=== PATIENT | male | born 1965 | race Caucasian/White ===

== ENCOUNTER 2021-09-30 06:41 | Inpatient (IN) | payer OTHER ==
[2021-09-30] MEDS ORDERED: CEFAZOLIN 2 GM-D5W BAG** 2 GM/50 ML ML IV ONE (07:46)
[2021-09-30] MEDS ORDERED: Lactated Ringers 1,000 ML IV ONE (07:46)
[2021-09-30] MEDS: Lactated Ringers 1,000 ML IV SCH ×2 (07:58→16:34)
[2021-09-30] MEDS ORDERED: OFIRMEV 100 ML IV ONE (08:14)
[2021-09-30] MEDS ORDERED: OFIRMEV 100 ML IV SCH (08:15)
[2021-09-30] MEDS ORDERED: NEURONTIN 300 MG PO SCH (08:15)
[2021-09-30 08:23] LABS: ANION GAP 11.6 MEQ/L (5-15); BLOOD UREA NITROGEN 30 mg/dL (9-20); CHLORIDE 104 mmol/L (98-107); Calcium 9.2 mg/dL (8.4-10.2); Carbon Dioxide 28 mmol/L (22-30); Creatinine 1 0.91 mg/dL (0.66-1.25); EST GLOMERULAR FILTRATION RATE > 60.0 ML/MIN; Glucose 101 mg/dL (74-106); Potassium 4.5 mmol/L (3.5-5.1); SODIUM 140 mmol/L (137-145)
[2021-09-30] MEDS ORDERED: VANCOCIN 1 GM VIAL IV ONE ×2 (08:25→15:56)
[2021-09-30] MEDS ORDERED: CEFAZOLIN 2 GM-D5W BAG** 2 GM/50 ML ML IV SCH (08:30)
[2021-09-30 08:44] LABS: Hematocrit 37.2 % (42-50); Mean Cell Volume 92.1 fl (78-100); Mean Corpuscular Hemoglobin 29.7 pg (26-32); Mean Corpuscular Hgb Concent. 32.3 g/dl (32-36); Mean Platelet Volume 10.2 fl (7.5-11.0); Platelet Count 275 K/mm3 (150-450); Red Blood Count 4.04 M/mm3 (4.1-5.6); Red Cell Distribution Width 14.2 % (11.5-14.0); White Blood Count 5.5 K/mm3 (4.0-10.5)
[2021-09-30] MEDS ORDERED: Versed 2 MG/2 ML Injection IV PRN (08:59)
[2021-09-30 09:25] LABS: INFLUENZA A NEGATIVE (NEGATIVE); INFLUENZA B NEGATIVE (NEGATIVE); RESPIRATORY SYNCTIAL VIRUS NEGATIVE (Negative); SARS-CoV-2 Xpert Express NEGATIVE (NEGATIVE)
[2021-09-30] MEDS ORDERED: Xylocaine-Mpf 2% 5 Ml Vial ONE ×2 (09:28→10:14)
[2021-09-30] MEDS ORDERED: Zofran 4 MG/2 ML VIAL ONE ×2 (09:28→15:19)
[2021-09-30] MEDS ORDERED: DIPRIVAN 200 MG/20 ML IV ONE (09:28)
[2021-09-30] MEDS ORDERED: TORAdol 30 mg Injection ONE ×2 (09:28→15:18)
[2021-09-30] MEDS ORDERED: Decadron 4 MG INJ ONE ×2 (09:28→13:42)
[2021-09-30] MEDS ORDERED: BRIDION 200MG/2ML IV ONE (09:28)
[2021-09-30] MEDS ORDERED: Zemuron 100 MG/10 ML ONE (09:28)
[2021-09-30] MEDS ORDERED: SUBLIMAZE 100 MCG/2 ML ONE ×3 (09:28→15:19)
[2021-09-30] MEDS ORDERED: Ketamine HCl 50 MG/ML ONE (10:16)
[2021-09-30] MEDS ORDERED: Marcaine 0.5%/Epinephrine 10 ML ONE (13:41)
[2021-09-30] MEDS ORDERED: TRANDATE 20 MG/4 ML SYRINGE IV ONE (14:10)
--- NOTE | 2021-09-30 14:12 | XRAY ---
Indication: Removal ankle replacement and replacement of external fixation. Intraoperative fluoroscopy provided for 42 seconds. 17 digital spot images of right ankle submitted for interpretation ultimately demonstrates revision of talotibial arthroplasty. Last images demonstrates external fixation device. Correlate with intraoperative findings/report.
[2021-09-30] MEDS ORDERED: Hydromorphone 1 mg/ml Injection ONE (15:19)
--- NOTE | 2021-09-30 15:26 | PCM.CONS ---
Podiatry HPI - Consult Date of Consultation Date: 09/30/21 Consulting Provider: OSCAR SNOW DPM - HPI History of Present Illness: is a 56 year old male. Medications & Allergies Home Medications: Home Medication List Aspirin 81 gm Chew [Baby Aspirin 81 mg Chew] 81 mg PO DAILY 09/21/21 [History Confirmed 09/30/21] Buprenorphine HCl [Belbuca] 600 mcg PO BID 09/21/21 [History Confirmed 09/30/21] Buspirone HCl 5 mg [Buspar 5 mg] 10 mg PO DAILY 09/21/21 [History Confirmed 09/30/21] Calcium Carbonate/Vitamin D3 [Caltrate 600 + D Soft Chew Tab] 1 each PO DAILY 09/21/21 [History Confirmed 09/30/21] Calcium Carbonate/Vitamin D3 [Sv Calcium 600-Vit D3 500 Sfgl] 1 each PO DAILY 09/21/21 [History Confirmed 09/30/21] Celecoxib 100 mg [celeBREX 100 MG] 200 mg PO DAILY 09/21/21 [History Confirmed 09/30/21] Cholecalciferol (Vitamin D3) [Vitamin D] 5,000 unit PO DAILY 09/21/21 [History Confirmed 09/30/21] Finasteride 5 mg [Proscar 5 MG] 5 mg PO DAILY 09/21/21 [History Confirmed 09/30/21] Hydrocodone/Acetaminophen [Hydrocodone-Acetamin 7.5-325] 1 each PO TID 09/21/21 [History Confirmed 09/30/21] Lidocaine HCl 2% Jelly [Xylocaine 2% JELLY] 5 ml MM DAILY PRN PRN 09/21/21 [History Confirmed 09/30/21] Lisinopril 10 mg [Zestril 10 MG] 10 mg PO DAILY 09/21/21 [History Confirmed 09/30/21] Metformin HCl 500 mg [Glucophage 500 MG] 500 mg PO DAILY 09/21/21 [History Confirmed 09/30/21] Oxcarbazepine 300 mg [Trileptal 300 MG Tablet] 300 mg PO BID 09/21/21 [History Confirmed 09/30/21] RX: Pregabalin 200 mg PO BID 09/21/21 [History Confirmed 09/30/21] Topiramate [Trokendi Xr] 25 mg PO DAILY 09/21/21 [History Confirmed 09/30/21] Tumeric/Ging/[place]/Oreg/Capryl [Candicidal Capsule] 1 each PO DAILY 09/21/21 [History Confirmed 09/30/21] Vit B/Min/Saw [place]ge[place] [Urinozinc Prost Complx [facility]] 1 each PO BID 09/21/21 [History Confirmed 09/30/21] Atorvastatin Calcium [Lipitor] 10 mg PO DAILY 09/30/21 [History Confirmed 09/30/21] Furosemide [Lasix] 20 mg PO DAILY 09/30/21 [History Confirmed 09/30/21] Oxycodone HCl/Acetaminophen [Oxycodone-Acetaminophn 7.5-325] 1 each PO QID PRN 09/30/21 [History Confirmed 09/30/21] Pnv 112/Iron/Folic/Om3/Dha/Epa [Vitafol Gummies] 1 each PO DAILY 09/30/21 [History Confirmed 09/30/21] Allergies/Adverse Reactions: Allergies Allergy/AdvReac Type Severity Reaction Status Date / Time No Known Drug Allergies Allergy Unverified 09/21/21 14:40 - Past Medical History Past Medical History: Yes Neurological History: Peripheral Neuropathy Cardiac History: Hypertension Endocrine Medical History: Diabetes Type II Musculoskelatal History: Arthritis Pyscho-Social History: Anxiety Male Reproductive Disorders: Prostate Problems - Past Surgical History Musculskeletal Surgical Hx: Joint Replacement Other Surgical History: total ankle Jul 2018, total knee December 2020. - Social History Smoking Status: Never smoker Exposure to second hand smoke: No Alcohol: Rarely Drug Use: none Physical Exam - Narrative Narrative Physical Exam: Podiatry Physical Exam Results - Labs Lab/Micro Results: Lab Results-Last 24 Hours 09/30/21 09/30/21 09/30/21 Range/Units 07:55 08:00 08:00 WBC 5.5 (4.0-10.5) K/mm3 RBC 4.04 L (4.1-5.6) M/mm3 Hgb 12.0 L (12.5-18.0) gm/dl Hct 37.2 L (42-50) % MCV 92.1 (78-100) fl MCH 29.7 (26-32) pg MCHC 32.3 (32-36) g/dl RDW 14.2 H (11.5-14.0) % Plt Count 275 (150-450) K/mm3 MPV 10.2 (7.5-11.0) fl Sodium 140 (137-145) mmol/L Potassium 4.5 (3.5-5.1) mmol/L Chloride 104 (98-107) mmol/L Carbon Dioxide 28 (22-30) mmol/L Anion Gap 11.6 (5-15) MEQ/L BUN 30 H (9-20) mg/dL Creatinine 0.91 (0.66-1.25) mg/dL Estimated GFR > 60.0 ML/MIN Glucose 101 (74-106) mg/dL POC Glucometer 107 H (74 to 106) mg/dL Calcium 9.2 (8.4-10.2) mg/dL Influenza Type A Ag (NEGATIVE) Influenza Type B Ag (NEGATIVE) RSV (PCR) (Negative) SARS-CoV-2 (PCR) (NEGATIVE) 09/30/21 Range/Units 08:45 WBC (4.0-10.5) K/mm3 RBC (4.1-5.6) M/mm3 Hgb (12.5-18.0) gm/dl Hct (42-50) % MCV (78-100) fl MCH (26-32) pg MCHC (32-36) g/dl RDW (11.5-14.0) % Plt Count (150-450) K/mm3 MPV (7.5-11.0) fl Sodium (137-145) mmol/L Potassium (3.5-5.1) mmol/L Chloride (98-107) mmol/L Carbon Dioxide (22-30) mmol/L Anion Gap (5-15) MEQ/L BUN (9-20) mg/dL Creatinine (0.66-1.25) mg/dL Estimated GFR ML/MIN Glucose (74-106) mg/dL POC Glucometer (74 to 106) mg/dL Calcium (8.4-10.2) mg/dL Influenza Type A Ag NEGATIVE (NEGATIVE) Influenza Type B Ag NEGATIVE (NEGATIVE) RSV (PCR) NEGATIVE (Negative) SARS-CoV-2 (PCR) NEGATIVE (NEGATIVE) - Radiology Impressions Radiology Exams & Impressions: Radiology Procedures Category Date Time Status FLUOROSCOPY UP TO 1 HR Routine Exams 09/30/21 06:47 Taken FOOT (2 VIEWS) Routine Exams 09/30/21 06:45 Completed Assessment/Plan (1) Varus deformity, not elsewhere classified, right ankle Current Visit: Yes Status: Acute Code(s): M21.171 - VARUS DEFORMITY, NOT ELSEWHERE CLASSIFIED, RIGHT ANKLE (2) Ankle varus, acquired Current Visit: Yes Status: Acute Assessment & Plan: Patient is postop day 0 status post removal of failed total ankle arthroplasty, bone debridement to tibia fibula talus and calcaneus and application of antibiotic bone cement and application of a multilevel multiplanar Ilizarov external fixator. Admit for pain control Consult medicine for medical management Pain control as prescribed DVT prophylaxis as prescribed Nonweightbearing to right lower extremity. Patient permitted touchdown with frame to ground Elevate extremity Antiembolism stocking to contralateral extremity with sequential compression device Incentive spirometry Keep dressing clean dry and intact. If there is strikethrough on dressing reinforce with ABD and Curlex with minimal appropriate compression Monitor intakes and output every shift Will follow closely Code(s): M21.549 - ACQUIRED CLUBFOOT, UNSPECIFIED FOOT (3) Pain in right ankle Current Visit: Yes Status: Acute Code(s): M25.571 - PAIN IN RIGHT ANKLE AND JOINTS OF RIGHT FOOT (4) Osteomyelitis due to type 2 diabetes mellitus Current Visit: Yes Status: Acute Code(s): E11.69 - TYPE 2 DIABETES MELLITUS WITH OTHER SPECIFIED COMPLICATION; M86.9 - OSTEOMYELITIS, UNSPECIFIED (5) Diabetic peripheral neuropathy associated with type 2 diabetes mellitus Current Visit: Yes Status: Acute Code(s): E11.42 - TYPE 2 DIABETES MELLITUS WITH DIABETIC POLYNEUROPATHY (6) Controlled diabetes mellitus Current Visit: Yes Status: Acute Code(s): E11.9 - TYPE 2 DIABETES MELLITUS WITHOUT COMPLICATIONS
--- NOTE | 2021-09-30 15:41 | XRAY ---
42 seconds fluoroscopy time in surgery for hardware removal and placement of external fixation of the right ankle.
[2021-09-30] MEDS ORDERED: DILAUDID 1 MG/1ML PCA IV PRN (15:45)
[2021-09-30] MEDS ORDERED: Narcan 0.4 MG/ML IV PRN (15:45)
[2021-09-30] MEDS ORDERED: Hydromorphone 1 mg/ml Injection IV PRN (15:50)
[2021-09-30] MEDS ORDERED: MORPHINE SULFATE 10 MG/ML ONE (15:56)
[2021-09-30] MEDS ORDERED: VANCOMYCIN 1 GRAM/200 ML BAG 1 GM/200 ML PIGGYBACK IV SCH (16:00)
[2021-09-30] MEDS: VANCOMYCIN 1 GRAM/200 ML BAG 1 GM/200 ML PIGGYBACK IV SCH (16:57)
--- NOTE | 2021-09-30 20:06 | PCM.HP ---
History of Present Illness - Chief Complaint Chief Complaint: Surgery to R ankle History of Present Illness: is a 56 year old male patient of [employer] Dr Newton admitted for bone debridement /failed Right total ankle arthroplatsy (2019),ankle varus right. PMHx includes HTN,DM2(prediabetes?),Peripheral neuropathy,BPH,Anxiety,arthritis S/P left total knee replacement. Patient states he worked [employer] with multiple injuries over the years. Current PCP is Jenny Gallagher NP and Pain Management Dr Moreno. - Review of Systems Constitutional: No Symptoms Eyes: No Symptoms Ears, Nose, & Throat: No Symptoms Respiratory: No Symptoms Cardiac: No Symptoms Abdominal/Gastrointestinal: No Symptoms Genitourinary Symptoms: Frequency, Urgency, Other (BPH on RX) Musculoskeletal: Arthralgias, Back Pain Neurological: Other (peripheral neuropathy) Psychological: Anxiety, Other (Takes Trileptal) Endocrine: No Symptoms Hematologic/Lymphatic: No Symptoms Medications & Allergies Home Medications: Home Medication List Aspirin 81 gm Chew [Baby Aspirin 81 mg Chew] 81 mg PO DAILY 09/21/21 [History Confirmed 09/30/21] Buprenorphine HCl [Belbuca] 450 mcg PO BID 09/21/21 [History Confirmed 09/30/21] Buspirone HCl 5 mg [Buspar 5 mg] 10 mg PO HS 09/21/21 [History Confirmed 09/30/21] Calcium Carbonate/Vitamin D3 [Caltrate 600 + D Soft Chew Tab] 1 each PO DAILY 09/21/21 [History Confirmed 09/30/21] Calcium Carbonate/Vitamin D3 [Sv Calcium 600-Vit D3 500 Sfgl] 1 each PO DAILY 09/21/21 [History Confirmed 09/30/21] Celecoxib 100 mg [celeBREX 100 MG] 200 mg PO DAILY 09/21/21 [History Confirmed 09/30/21] Cholecalciferol (Vitamin D3) [Vitamin D] 5,000 unit PO DAILY 09/21/21 [History Confirmed 09/30/21] Finasteride 5 mg [Proscar 5 MG] 5 mg PO DAILY 09/21/21 [History Confirmed 09/30/21] Hydrocodone/Acetaminophen [Hydrocodone-Acetamin 7.5-325] 1 each PO TID 09/21/21 [History Confirmed 09/30/21] Lidocaine HCl 2% Jelly [Xylocaine 2% JELLY] 5 ml MM DAILY PRN PRN 09/21/21 [History Confirmed 09/30/21] Lisinopril 10 mg [Zestril 10 MG] 10 mg PO DAILY 09/21/21 [History Confirmed 09/30/21] Metformin HCl 500 mg [Glucophage 500 MG] 500 mg PO DAILY 09/21/21 [History Confirmed 09/30/21] Oxcarbazepine 300 mg [Trileptal 300 MG Tablet] 300 mg PO BID 09/21/21 [History Confirmed 09/30/21] Pregabalin 200 mg PO BID 09/21/21 [History Confirmed 09/30/21] Tumeric/Ging/[place]/Oreg/Capryl [Candicidal Capsule] 1 each PO DAILY 09/21/21 [History Confirmed 09/30/21] Vit B/Min/Saw [place]/Pyge[place] [Urinozinc Prost Complx [facility] Cp] 1 each PO BID 09/21/21 [History Confirmed 09/30/21] Alfuzosin HCl [Alfuzosin HCl ER] 10 mg PO DAILY 09/30/21 [History Confirmed 09/30/21] Atorvastatin Calcium [Lipitor] 20 mg PO DAILY 09/30/21 [History Confirmed 09/30/21] Furosemide [Lasix] 20 mg PO DAILY 09/30/21 [History Confirmed 09/30/21] Oxycodone HCl/Acetaminophen [Oxycodone-Acetaminophn 7.5-325] 1 each PO QID PRN 09/30/21 [History Confirmed 09/30/21] Pnv 112/Iron/Folic/Om3/Dha/Epa [Vitafol Gummies] 1 each PO DAILY 09/30/21 [History Confirmed 09/30/21] Allergies/Adverse Reactions: Allergies Allergy/AdvReac Type Severity Reaction Status Date / Time No Known Drug Allergies Allergy Unverified 09/21/21 14:40 - Past Medical History Past Medical History: Yes Neurological History: Peripheral Neuropathy Cardiac History: Hypertension Endocrine Medical History: Diabetes Type II Musculoskelatal History: Arthritis Pyscho-Social History: Anxiety Male Reproductive Disorders: Prostate Problems - Past Surgical History Past Surgical History: Yes Neuro Surgical History: No Pertinent History Cardiac History: No Pertinent History Respiratory Surgery: No Pertinent History GI Surgical History: No Pertinent History Genitourinary Surgical Hx: No Pertinent History Musculskeletal Surgical Hx: Joint Replacement Male Surgical History: No Pertinent History Other Surgical History: total ankle Jul 2018, total knee December 2020. - Social History Smoking Status: Never smoker Exposure to second hand smoke: No Alcohol: Rarely Drug Use: none - Physical Exam Vital Signs: Vital Signs - 24 hr Temp Pulse Resp BP Pulse Ox 09/30/21 18:50 98.6 F 97 H 20 117/56 94 L 09/30/21 17:50 97.8 F 77 16 140/73 95 09/30/21 17:20 97.5 F 73 16 143/73 98 09/30/21 17:08 97.7 F 77 18 132/72 90 L 09/30/21 16:59 90 L 09/30/21 16:50 97.5 F 75 18 126/69 93 L 09/30/21 16:35 97.7 F 77 18 132/72 90 L 09/30/21 08:44 97.7 F 67 18 141/87 93 L 09/30/21 08:32 97.7 F 67 18 141/87 93 L General Appearance: no apparent distress (post op day 0 with block still in affect) Neurologic Exam: alert, oriented x 3, cooperative Eye Exam: eyes nml inspection Neck Exam: normal inspection Respiratory Exam: normal breath sounds Cardiovascular Exam: regular rate/rhythm Gastrointestinal/Abdomen Exam: soft (nontender) Rectal Exam: not done Back Exam: normal inspection Extremity Exam: other (RLE - external fixator is in place post op bandages dry,toes warm,can move all toes,left knee scar healed S/P left total knee replacement) Wound Assessment: Skin/Wound Assessment Wound/Incision Assessment Start: 09/30/21 17:37 Text: Status: Active Freq: Q6H Protocol: Document 09/30/21 17:37 BA (Rec: 09/30/21 17:50 BA [id number]) Wound/Incision Assessment Right Ankle Wound Assessment Admission Wound Type Incision Wound Stage Non Pressure Wound Dressing Status Dry & Intact Drainage Amount None Drainage Odor None/Absent Surrounding Tissue [place] Comment surgical dressing/bety wrap in place. Moves toes on command; pink warm to touch. Results - Labs Lab/Micro Results: Lab Results-Last 24 Hours 09/30/21 09/30/21 09/30/21 Range/Units 07:55 08:00 08:00 WBC 5.5 (4.0-10.5) K/mm3 RBC 4.04 L (4.1-5.6) M/mm3 Hgb 12.0 L (12.5-18.0) gm/dl Hct 37.2 L (42-50) % MCV 92.1 (78-100) fl MCH 29.7 (26-32) pg MCHC 32.3 (32-36) g/dl RDW 14.2 H (11.5-14.0) % Plt Count 275 (150-450) K/mm3 MPV 10.2 (7.5-11.0) fl Sodium 140 (137-145) mmol/L Potassium 4.5 (3.5-5.1) mmol/L Chloride 104 (98-107) mmol/L Carbon Dioxide 28 (22-30) mmol/L Anion Gap 11.6 (5-15) MEQ/L BUN 30 H (9-20) mg/dL Creatinine 0.91 (0.66-1.25) mg/dL Estimated GFR > 60.0 ML/MIN Glucose 101 (74-106) mg/dL POC Glucometer 107 H (74 to 106) mg/dL Calcium 9.2 (8.4-10.2) mg/dL Influenza Type A Ag (NEGATIVE) Influenza Type B Ag (NEGATIVE) RSV (PCR) (Negative) SARS-CoV-2 (PCR) (NEGATIVE) 09/30/21 Range/Units 08:45 WBC (4.0-10.5) K/mm3 RBC (4.1-5.6) M/mm3 Hgb (12.5-18.0) gm/dl Hct (42-50) % MCV (78-100) fl MCH (26-32) pg MCHC (32-36) g/dl RDW (11.5-14.0) % Plt Count (150-450) K/mm3 MPV (7.5-11.0) fl Sodium (137-145) mmol/L Potassium (3.5-5.1) mmol/L Chloride (98-107) mmol/L Carbon Dioxide (22-30) mmol/L Anion Gap (5-15) MEQ/L BUN (9-20) mg/dL Creatinine (0.66-1.25) mg/dL Estimated GFR ML/MIN Glucose (74-106) mg/dL POC Glucometer (74 to 106) mg/dL Calcium (8.4-10.2) mg/dL Influenza Type A Ag NEGATIVE (NEGATIVE) Influenza Type B Ag NEGATIVE (NEGATIVE) RSV (PCR) NEGATIVE (Negative) SARS-CoV-2 (PCR) NEGATIVE (NEGATIVE) - Radiology Impressions Radiology Exams & Impressions: Radiology Procedures Category Date Time Status FLUOROSCOPY UP TO 1 HR Routine Exams 09/30/21 06:47 Completed FOOT (2 VIEWS) Routine Exams 09/30/21 06:45 Completed Assessment/Plan (1) Varus deformity, not elsewhere classified, right ankle Current Visit: Yes Status: Chronic Code(s): M21.171 - VARUS DEFORMITY, NOT ELSEWHERE CLASSIFIED, RIGHT ANKLE (2) Controlled diabetes mellitus Current Visit: Yes Status: Chronic Qualifiers: Diabetes mellitus type: type 2 Diabetes mellitus chcf insulin use: without customer support advisor use Code(s): E11.9 - TYPE 2 DIABETES MELLITUS WITHOUT COMPLICATIONS (3) 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 Assessment & Plan: post op day 0 Right ankle corrective surgery/debridement Code(s): T84.019A - BROKEN INTERNAL JOINT PROSTHESIS, UNSP SITE, INIT ENCNTR (4) HTN (hypertension) Current Visit: Yes Status: Acute Code(s): I10 - ESSENTIAL (PRIMARY) HYPERTENSION
[2021-09-30] MEDS: NORCO 5/325 MG PO PRN (21:10)
[2021-09-30] MEDS ORDERED: LYRICA 100MG PO SCH (22:00)
[2021-09-30] MEDS ORDERED: BUSPAR 5 MG PO SCH (22:00)
[2021-09-30] MEDS: Zestril 10 MG PO SCH (22:01)
[2021-10-01] MEDS: VANCOMYCIN 1 GRAM/200 ML BAG 1 GM/200 ML PIGGYBACK IV SCH ×3 (02:15→18:05)
[2021-10-01] MEDS: NORCO 5/325 MG PO PRN ×5 (04:21→22:05)
[2021-10-01] MEDS ORDERED: Xylocaine 2% JELLY MM PRN (07:44)
[2021-10-01] MEDS ORDERED: PHARMACY DOSING REQUIRED: DILAUDID PCA IV PRN (08:02)
--- NOTE | 2021-10-01 08:03 | PCM.NOTE ---
Date and Time: 10/01/21 0756 Subjective Assessment: Patient seen at bedside this a.m postop day #1 status post removal of total ankle arthroplasty, multiple bone debridement placement of antibiotic spacer and application of a multiplanar static Ilizarov external fixator. Patient is postop day #1 date of procedure 09/30/2021. Patient with some complaints of burning pain at the inner aspect of the ankle this morning. Patient is able to wiggle toes. Sensation intact to all dermatomes to the right lower extremity. Patient denies any constitutional symptoms of infection. He has many questions. Nursing staff (Domingo) at bedside during conversation. No other pedal complaints at this time Physical Exam - Vascular Varicosities: Negtive Edema: None Skin: Supple, not atrophic Skin Temperature: Warm to touch - Muscular Digital Deformity: hammer toe Joint ROM: Limited ROM Equinus: Gastorocnemius equinus - Narrative Narrative Physical Exam: Podiatry Physical Exam Dressings clean dry and intact with no strikethrough on primary or secondary dressing. External fixator with no loss of position. Foot orthogonal to the longitudinal access of the tibia with no residual deformity. Patient is able to wiggle toes. Sensation intact to all dermatomes to the right lower extremity. OBJECTIVE DATA Vital Signs: Vital Signs - 24 hr Temp Pulse Resp BP Pulse Ox 10/01/21 07:45 63 20 97 10/01/21 04:26 98.4 F 69 18 101/71 96 09/30/21 23:37 97.9 F 72 20 112/57 94 L 09/30/21 22:44 95 09/30/21 18:50 98.6 F 97 H 20 117/56 94 L 09/30/21 17:50 97.8 F 77 16 140/73 95 09/30/21 17:20 97.5 F 73 16 143/73 98 09/30/21 17:08 97.7 F 77 18 132/72 90 L 09/30/21 16:59 90 L 09/30/21 16:50 97.5 F 75 18 126/69 93 L 09/30/21 16:35 97.7 F 77 18 132/72 90 L 09/30/21 08:44 97.7 F 67 18 141/87 93 L 09/30/21 08:32 97.7 F 67 18 141/87 93 L Pain Assessment - Last Documented Pain Intensity [right ankle] 6 Pain Intensity 6 Pain Scale Used 0-10 Pain Scale Intake and Output: Intake & Output 09/28/21 09/29/21 09/30/21 10/01/21 11:59 11:59 11:59 11:59 Intake Total 4303 Output Total 3300 Balance 1003 Weight 130.4 kg 140 kg Lab Results: Lab Results-Last 24 Hours 09/30/21 09/30/21 09/30/21 Range/Units 07:55 08:00 08:00 WBC 5.5 (4.0-10.5) K/mm3 RBC 4.04 L (4.1-5.6) M/mm3 Hgb 12.0 L (12.5-18.0) gm/dl Hct 37.2 L (42-50) % MCV 92.1 (78-100) fl MCH 29.7 (26-32) pg MCHC 32.3 (32-36) g/dl RDW 14.2 H (11.5-14.0) % Plt Count 275 (150-450) K/mm3 MPV 10.2 (7.5-11.0) fl Sodium 140 (137-145) mmol/L Potassium 4.5 (3.5-5.1) mmol/L Chloride 104 (98-107) mmol/L Carbon Dioxide 28 (22-30) mmol/L Anion Gap 11.6 (5-15) MEQ/L BUN 30 H (9-20) mg/dL Creatinine 0.91 (0.66-1.25) mg/dL Estimated GFR > 60.0 ML/MIN Glucose 101 (74-106) mg/dL POC Glucometer 107 H (74 to 106) mg/dL Calcium 9.2 (8.4-10.2) mg/dL Influenza Type A Ag (NEGATIVE) Influenza Type B Ag (NEGATIVE) RSV (PCR) (Negative) SARS-CoV-2 (PCR) (NEGATIVE) 09/30/21 09/30/21 10/01/21 Range/Units 08:45 20:57 07:30 WBC (4.0-10.5) K/mm3 RBC (4.1-5.6) M/mm3 Hgb (12.5-18.0) gm/dl Hct (42-50) % MCV (78-100) fl MCH (26-32) pg MCHC (32-36) g/dl RDW (11.5-14.0) % Plt Count (150-450) K/mm3 MPV (7.5-11.0) fl Sodium (137-145) mmol/L Potassium (3.5-5.1) mmol/L Chloride (98-107) mmol/L Carbon Dioxide (22-30) mmol/L Anion Gap (5-15) MEQ/L BUN (9-20) mg/dL Creatinine (0.66-1.25) mg/dL Estimated GFR ML/MIN Glucose (74-106) mg/dL POC Glucometer 148 H 112 H (74 to 106) mg/dL Calcium (8.4-10.2) mg/dL Influenza Type A Ag NEGATIVE (NEGATIVE) Influenza Type B Ag NEGATIVE (NEGATIVE) RSV (PCR) NEGATIVE (Negative) SARS-CoV-2 (PCR) NEGATIVE (NEGATIVE) Radiology Exams: Radiology Procedures Category Date Time Status FLUOROSCOPY UP TO 1 HR Routine Exams 09/30/21 06:47 Completed FOOT (2 VIEWS) Routine Exams 09/30/21 06:45 Completed Assessment/Plan (1) Varus deformity, not elsewhere classified, right ankle Current Visit: Yes Status: Acute Code(s): M21.171 - VARUS DEFORMITY, NOT ELSEWHERE CLASSIFIED, RIGHT ANKLE (2) Ankle varus, acquired Current Visit: Yes Status: Acute Assessment & Plan: Patient is postop day 1 status post removal of failed total ankle arthroplasty, bone debridement to tibia fibula talus and calcaneus and application of ant ibiotic bone cement and application of a multilevel multiplanar Ilizarov external fixator. Patient progressing without significant complication at this time. Patient has continued complaints of pain to the inner aspect of the left ankle. Patient was postoperatively given a popliteal block and is on several narcotics at this time. Concern for medication prescribed by pain management physician Cherise that may be counteracting some of the narcotics effect. At this time increase pain control in preparation for block wearing off. We will plan to wean off of intravenous narcotics once pain is under control Will increase Lyrica to 200 mg 3 times daily Continue DVT prophylaxis Nonweightbearing to the right lower extremity. Patient permitted touchdown with frame to the ground. Nurse assessment for transfers to chair side. PT OT will reassess from a formal perspective on Sunday. Once assessed bedside commode with assistance Elevate extremity Antiembolism stocking to the contralateral extremity with sequential compression device Incentive spirometry Will plan for CT scan without contrast to the right ankle on Sunday Discussion with case management for plan for discharge. Patient requesting hospital bed for home. Keep dressings clean dry and intact. If there is strikethrough on the dressing reinforce with ABD and Kerlix with minimal compression. Monitor intake and output every shift We will follow closely Code(s): M21.549 - ACQUIRED CLUBFOOT, UNSPECIFIED FOOT (3) Pain in right ankle Current Visit: Yes Status: Acute Code(s): M25.571 - PAIN IN RIGHT ANKLE AND JOINTS OF RIGHT FOOT (4) Osteomyelitis due to type 2 diabetes mellitus Current Visit: Yes Status: Acute Code(s): E11.69 - TYPE 2 DIABETES MELLITUS WITH OTHER SPECIFIED COMPLICATION; M86.9 - OSTEOMYELITIS, UNSPECIFIED (5) Diabetic peripheral neuropathy associated with type 2 diabetes mellitus Current Visit: Yes Status: Acute Code(s): E11.42 - TYPE 2 DIABETES MELLITUS WITH DIABETIC POLYNEUROPATHY (6) Controlled diabetes mellitus Current Visit: Yes Status: Acute Code(s): E11.9 - TYPE 2 DIABETES MELLITUS WITHOUT COMPLICATIONS
[2021-10-01] MEDS ORDERED: MEDICATION INTERVENTION PO SCH (08:30)
[2021-10-01] MEDS: Glucophage 500 MG PO SCH (08:44)
[2021-10-01] MEDS: VITAMIN D PO SCH (09:01)
[2021-10-01] MEDS: Calcium 500MG W/Vit D Tablet PO SCH (09:01)
[2021-10-01] MEDS: LASIX 20 MG PO SCH (09:07)
[2021-10-01] MEDS: Zestril 10 MG PO SCH (09:07)
[2021-10-01] MEDS: LYRICA 100MG PO SCH ×3 (09:07→22:05)
[2021-10-01] MEDS: ZOCOR 20MG PO SCH (09:07)
[2021-10-01] MEDS: Trileptal 300 MG Tablet PO SCH ×3 (09:08→22:05)
[2021-10-01] MEDS: Proscar 5 MG PO SCH (09:09)
[2021-10-01] MEDS: ENOXAPARIN SODIUM SQ SCH (09:10)
[2021-10-01] MEDS ORDERED: MULTIVITAMIN PO SCH (10:00)
[2021-10-01] MEDS ORDERED: NON-FORMULARY ITEM (Alfuzosin Hcl [Alfuzosin Hcl Er] 10 MG Tab.Er.24h) PO SCH (10:00)
[2021-10-01] MEDS ORDERED: OMEGA 3 FATTY ACIDS PO SCH (10:00)
[2021-10-01] MEDS ORDERED: FOLIC ACID PO SCH (10:00)
[2021-10-01] MEDS ORDERED: NON-FORMULARY ITEM (Atorvastatin Calcium 10 MG Tablet) PO SCH (10:00)
[2021-10-01] MEDS ORDERED: DOCOSAHEXAENOIC ACID PO SCH (10:00)
[2021-10-01] MEDS ORDERED: VITAMIN D3 PO SCH (10:00)
[2021-10-01] MEDS ORDERED: IRON PO SCH (10:00)
[2021-10-01] MEDS ORDERED: CALCIUM CARBONATE PO SCH (10:00)
[2021-10-01] MEDS ORDERED: NON-FORMULARY ITEM (Cholecalciferol (Vitamin D3) [Vitamin D3] 1,250 MCG Capsule) PO SCH (10:00)
[2021-10-01] MEDS ORDERED: [UNRECOGNIZED DRUG - OTHER] PO SCH (10:00)
[2021-10-01] MEDS ORDERED: [UNRECOGNIZED DRUG - OTHER] PO SCH (10:00)
[2021-10-01] MEDS ORDERED: [UNRECOGNIZED DRUG - OTHER] PO SCH (10:00)
--- NOTE | 2021-10-01 13:21 | PCM.NOTE ---
Date and Time: 10/01/21 1317 Subjective Assessment: POD#1 Dr Newton note reviewed. Patient states doing well other than expected discomfort from surgery. Has a good appetite and sugars are wnl. Denies cough or chest pain or abd pain. Has chronic BPH frequency. Objective Exam General Appearance: no apparent distress Neurologic Exam: alert, oriented x 3, cooperative Skin Exam: normal color, warm Wound Assessment: Skin/Wound Assessment Wound/Incision Assessment Start: 09/30/21 17:37 Text: Status: Active Freq: Q6H Protocol: Document 10/01/21 08:00 RDNE (Rec: 10/01/21 09:27 [email or web address] [id number]) Wound/Incision Assessment Right Ankle Wound Assessment Shift Assessment Wound Type Incision Wound Stage Non Pressure Wound Dressing Status Dry & Intact Drainage Amount None Drainage Odor None/Absent Surrounding Tissue [place] Comment surgical dressing/bety wrap in place. Moves toes on command; pink warm to touch. Neck Exam: normal inspection Respiratory Exam: normal breath sounds Cardiovascular Exam: regular rate/rhythm Gastrointestinal/Abdomen Exam: soft (nontender) Extremity Exam: other (right ankle ext fixator in place-see Podiatry note.) OBJECTIVE DATA Vital Signs: Vital Signs - 24 hr Temp Pulse Resp BP Pulse Ox 10/01/21 12:43 96.9 F 66 18 103/55 96 10/01/21 09:16 77 102/55 10/01/21 09:01 95 10/01/21 07:45 63 20 97 10/01/21 04:26 98.4 F 69 18 101/71 96 09/30/21 23:37 97.9 F 72 20 112/57 94 L 09/30/21 22:44 95 09/30/21 18:50 98.6 F 97 H 20 117/56 94 L 09/30/21 17:50 97.8 F 77 16 140/73 95 09/30/21 17:20 97.5 F 73 16 143/73 98 09/30/21 17:08 97.7 F 77 18 132/72 90 L 09/30/21 16:59 90 L 09/30/21 16:50 97.5 F 75 18 126/69 93 L 09/30/21 16:35 97.7 F 77 18 132/72 90 L Pain Assessment - Last Documented Pain Intensity [right ankle] 6 Pain Intensity 8 Pain Scale Used 0-10 Pain Scale Intake and Output: Intake & Output 09/29/21 09/30/21 10/01/21 10/02/21 11:59 11:59 11:59 11:59 Intake Total 5593 Output Total 3850 Balance 1743 Weight 130.4 kg 140 kg Lab Results: Lab Results-Last 24 Hours 09/30/21 10/01/21 10/01/21 Range/Units 20:57 07:30 11:24 POC Glucometer 148 H 112 H 111 H (74 to 106) mg/dL Radiology Exams: Radiology Procedures Category Date Time Status FLUOROSCOPY UP TO 1 HR Routine Exams 09/30/21 06:47 Completed FOOT (2 VIEWS) Routine Exams 09/30/21 06:45 Completed Assessment/Plan (1) Pain in right ankle Current Visit: Yes Status: Chronic Assessment & Plan: POD#1 corrective R ankle surgery S/P failed right ankle arthropasty Code(s): M25.571 - PAIN IN RIGHT ANKLE AND JOINTS OF RIGHT FOOT (2) 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 Assessment & Plan: right ankle arthoplasty failed Code(s): T84.019A - BROKEN INTERNAL JOINT PROSTHESIS, UNSP SITE, INIT ENCNTR (3) HTN (hypertension) Current Visit: Yes Status: Chronic Assessment & Plan: controlled Code(s): I10 - ESSENTIAL (PRIMARY) HYPERTENSION (4) Diabetic peripheral neuropathy associated with type 2 diabetes mellitus Current Visit: Yes Status: Acute Code(s): E11.42 - TYPE 2 DIABETES MELLITUS WITH DIABETIC POLYNEUROPATHY (5) Controlled diabetes mellitus Current Visit: Yes Status: Chronic Qualifiers: Diabetes mellitus type: type 2 Diabetes mellitus detention insulin use: without intermediate designer use Assessment & Plan: monitor Code(s): E11.9 - TYPE 2 DIABETES MELLITUS WITHOUT COMPLICATIONS
[2021-10-01] MEDS: Lactated Ringers 1,000 ML IV SCH (13:46)
[2021-10-01] MEDS: BUSPAR 5 MG PO SCH (22:06)
[2021-10-02] MEDS: VANCOMYCIN 1 GRAM/200 ML BAG 1 GM/200 ML PIGGYBACK IV SCH ×3 (02:54→17:53)
[2021-10-02] MEDS: NORCO 5/325 MG PO PRN ×4 (04:44→22:10)
[2021-10-02] MEDS: DILAUDID 1 MG/1ML PCA IV PRN ×3 (06:38→18:48)
[2021-10-02] MEDS: Glucophage 500 MG PO SCH (08:16)
[2021-10-02] MEDS ORDERED: TROUGH DRUG LEVELS IJ ONE (09:30)
[2021-10-02] MEDS: VITAMIN D PO SCH (09:32)
[2021-10-02] MEDS: ENOXAPARIN SODIUM SQ SCH (09:33)
[2021-10-02] MEDS: Calcium 500MG W/Vit D Tablet PO SCH (09:33)
[2021-10-02] MEDS: Zestril 10 MG PO SCH (09:33)
[2021-10-02] MEDS: LYRICA 100MG PO SCH ×3 (09:33→22:11)
[2021-10-02] MEDS: LASIX 20 MG PO SCH (09:33)
[2021-10-02] MEDS: ZOCOR 20MG PO SCH (09:33)
[2021-10-02] MEDS: Proscar 5 MG PO SCH (09:34)
[2021-10-02] MEDS: Trileptal 300 MG Tablet PO SCH ×2 (09:34→22:11)
[2021-10-02] MEDS: PATIENT OWN MEDICATION PO SCH ×3 (10:25→22:13)
[2021-10-02] MEDS ORDERED: ULTRAM 50 MG PO PRN (11:45)
[2021-10-02] MEDS ORDERED: MOTRIN 600 MG PO PRN (11:46)
[2021-10-02] MEDS: Lactated Ringers 1,000 ML IV SCH (14:05)
--- NOTE | 2021-10-02 21:31 | PCM.NOTE ---
Date and Time: 10/02/212123 Subjective Assessment: Post op day # 2 Right ankle corrective surgery. Patient has adequate pain control . Appetite is good sugars are in range.Denies any new c/o. Objective Exam General Appearance: no apparent distress, other (staff is here to help patient get up to use bedside commode.) Neurologic Exam: alert, oriented x 3 Skin Exam: normal color, warm, dry Wound Assessment: Skin/Wound Assessment Wound/Incision Assessment Start: 09/30/21 17:37 Text: Status: Active Freq: Q6H Protocol: Document 10/02/21 20:00 RB (Rec: 10/02/21 20:44 RB [id number]) Wound/Incision Assessment Right Ankle Wound Assessment Shift Assessment Wound Type Incision Wound Stage Non Pressure Wound Dressing Status Dry & Intact Drainage Amount None Drainage Odor None/Absent General Appearance Clean/Dry Surrounding Tissue [place] Comment dressing C/D/I - pt has sensation to toes and is able to move on command. Cap refill less than 3 sec. - all remains true Wound Photo Photo Taken No Respiratory Exam: other (no conversational dyspnea) Extremity Exam: other (right ankle external fixator in place moves all toes) OBJECTIVE DATA Vital Signs: Vital Signs - 24 hr Temp Pulse Resp BP Pulse Ox 10/02/21 20:32 97.0 F 68 21 120/60 95 10/02/21 20:29 93 L 10/02/21 18:48 97 10/02/21 17:00 96.9 F 63 23 110/65 93 L 10/02/21 12:32 95.9 F 66 23 127/65 93 L 10/02/21 09:00 97.3 F 62 110/59 95 10/02/21 08:07 94 L 10/02/21 05:00 97.1 F 57 L 18 118/60 94 L 10/01/21 23:33 97.5 F 71 20 107/53 94 L Pain Assessment - Last Documented Pain Intensity [right ankle] 6 Pain Intensity 7 Pain Scale Used 0-10 Pain Scale Intake and Output: Intake & Output 09/30/21 10/01/21 10/02/21 10/03/21 11:59 11:59 11:59 11:59 Intake Total 3195 4651 2207 Output Total 0382 2699 1593 Balance 1743 -1121 812 Weight 130.4 kg 140 kg Lab Results: Lab Results-Last 24 Hours 10/02/21 10/02/21 10/02/21 Range/Units 09:20 12:04 17:09 POC Glucometer 95 99 (74 to 106) mg/dL Vancomycin Trough 17.38 (10-20) ug/mL Assessment/Plan (1) Varus deformity, not elsewhere classified, right ankle Current Visit: Yes Status: Chronic Code(s): M21.171 - VARUS DEFORMITY, NOT ELSEWHERE CLASSIFIED, RIGHT ANKLE (2) Controlled diabetes mellitus Current Visit: Yes Status: Chronic Qualifiers: Diabetes mellitus type: type 2 Diabetes mellitus jail insulin use: without jail use Assessment & Plan: monitor Code(s): E11.9 - TYPE 2 DIABETES MELLITUS WITHOUT COMPLICATIONS (3) 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 Code(s): T84.019A - BROKEN INTERNAL JOINT PROSTHESIS, UNSP SITE, INIT ENCNTR (4) HTN (hypertension) Current Visit: Yes Status: Chronic Code(s): I10 - ESSENTIAL (PRIMARY) HYPERTENSION
[2021-10-02] MEDS: BUSPAR 5 MG PO SCH (22:10)
[2021-10-02] MEDS: BENADRYL 25 MG CAPSULE PO PRN (22:21)
[2021-10-03] MEDS: VANCOMYCIN 1 GRAM/200 ML BAG 1 GM/200 ML PIGGYBACK IV SCH ×3 (01:55→17:18)
[2021-10-03] MEDS: NORCO 5/325 MG PO PRN ×4 (02:06→14:06)
[2021-10-03 04:59] LABS: Creatinine 1 0.97 mg/dL (0.66-1.25); EST GLOMERULAR FILTRATION RATE > 60.0 ML/MIN
[2021-10-03] MEDS: Glucophage 500 MG PO SCH (07:47)
[2021-10-03] MEDS: DILAUDID 1 MG/1ML PCA IV PRN ×2 (09:30→18:52)
[2021-10-03] MEDS: VITAMIN D PO SCH (09:39)
[2021-10-03] MEDS: LYRICA 100MG PO SCH ×3 (09:40→21:44)
[2021-10-03] MEDS: Calcium 500MG W/Vit D Tablet PO SCH (09:40)
[2021-10-03] MEDS: Trileptal 300 MG Tablet PO SCH ×2 (09:40→21:44)
[2021-10-03] MEDS: Proscar 5 MG PO SCH (09:40)
[2021-10-03] MEDS: Zestril 10 MG PO SCH (09:41)
[2021-10-03] MEDS: MINERAL OIL PO SCH ×2 (09:41→21:43)
[2021-10-03] MEDS: ENOXAPARIN SODIUM SQ SCH (09:41)
[2021-10-03] MEDS: ZOCOR 20MG PO SCH (09:41)
[2021-10-03] MEDS: PATIENT OWN MEDICATION PO SCH ×3 (09:42→21:45)
--- NOTE | 2021-10-03 10:31 | OP ---
SURGERY DATE/TIME: 09/30/2021 0955 PREOPERATIVE DIAGNOSES: 1) Right failed total ankle arthroplasty. 2) Right ankle pain. 3) Right acquired ankle varus. 4) Osteomyelitis. 5) Peripheral neuropathy. 6) Diabetes type II controlled with peripheral neuropathy. POSTOPERATIVE DIAGNOSIS: 1) Right failed total ankle arthroplasty. 2) Right ankle pain. 3) Right acquired ankle varus. 4) Osteomyelitis. 5) Peripheral neuropathy. 6) Diabetes type II controlled with peripheral neuropathy. PROCEDURE: 1) Removal of total ankle implant right ankle. 2) Bone debridement of talus. 3) Bone debridement of tibia and fibula. 4) Trocar bone biopsy of calcaneus. 5) Application of antibiotic impregnated bone cement spacer. 6) Application of a multiplanar external fixator. SURGEON: [place] DPM. ASSOCIATE DOCTOR: None. ANESTHESIA: General plus a postoperative popliteal and saphenous block. HEMOSTASIS: Thigh tourniquet set to 350 mm of Mercury for 115 minutes total tourniquet time. ESTIMATED BLOOD LOSS: Less than 30 cc. MATERIALS: Seal Ilizarov frame. Biomet Refobacin cement and Vancomycin bone cement spacer. 2-0 Vicryl, 3-0 Nylon, 2-0 Nylon and resuture guard. INJECTABLES: See anesthesia report for details. INDICATION FOR SURGERY: Tin is a very pleasant 56-year-old male who presented to my service three years after having had a total ankle arthroplasty by another physician. 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 The patient had been suffering with this issue for almost three years at this time. There are concerns as to why he developed the Charcot if it is truly Charcot or this is possibly infectious or due to a vascular necrosis of the talus. For that reason discussion with the patient and we decided to stage the procedure in order to obtain bone biopsies of old surrounding bones to insure that there is no bone infection before proceeding with tibiotalar calcaneal arthrodesis to avoid the situation of a septic knee. The patient understands this. All risks, benefits and complications of surgical intervention were discussed with the patient at length and he understands the possibility that at the end of this case despite our trying there may be the possibility he ends up losing his leg. The patient understands this and the degree that he has had leading up to this point, he would like to attempt at limb salvage before proceeding with possible amputation. Plenty of time was allowed for the patient to ask questions which were answered to the patient's apparent satisfaction. No guarantees were provided as to the outcome of the procedure and as this is a limb salvage case the possibility of complication is relatively high. The patient understands all of this and wishes to proceed with surgical intervention at this time. DESCRIPTION OF PROCEDURE AND FINDINGS: The patient was brought into the OR and placed on the OR table in the supine position. At this time, a well-padded thigh tourniquet was applied to the right lower extremity and the tourniquet was set to 350 mm of Mercury. Following this, the right lower extremity was prepped and draped in the typical sterile fashion and the extremity was lowered onto the surgical field. At this time Esmarch was utilized to exsanguinate the leg and the tourniquet was inflated. Following this, fluoroscopy was utilized to identify the exact midline of the patient's total ankle arthroplasty implant which was identified with a [place] under fluoroscopy. Following this, an incision was made utilizing a 15 blade carrying down the dissection through multiple planes being careful not to damage any neurovascular structures. It is of note that the tibialis anterior artery as well as neurovascular bundle was identified and retracted laterally out of the surgical field. Capsular dissection revealed the dorsal portion of the tibial component of the implant. Further dissection revealed the polyethylene and talar component of the total ankle arthroplasty. The polyethylene was first removed and then the tibial component and the talar component using flexible osteotome. At this time the bone was inspected and deemed to be of less than ideal quality. The tibia and fibula were debrided extensively at this time and then following this the talus was debrided utilizing a combination of rongeurs, curettes and a sagittal saw. Following this, a trocar bone biopsy was obtained using a Jamshidi needle at the lateral aspect of the calcaneus obtaining samples of each of these bones for assessment, pathology and culture. At this time copious amounts of sterile saline was utilized to flush the surgical site. At this time antibiotic impregnated bone cement was formed and placed into the anterior aspect of the deficit, this was impregnated with 1 gm of vancomycin as well as gentamicin. Following this application of a multiplanar Ilizarov external fixator was performed being careful not to violate any of the danger zones and staying within the safe zones of the tibia and the calcaneus. These were tensioned to 120 kg of pressure at the tibia and 90 kg of pressure at the calcaneus. Following this, 2-0 Vicryl was utilized to coapt the subcutaneous skin edges in a buried interrupted-type fashion. Following this 3-0 Nylon was utilized to coapt the surgical skin edges. Following this, three suture guards were placed at the medial and lateral aspects of the incision and 2-0 Nylon was utilized to reduce the tension to the surgical site. Following this, pin care was performed utilizing Iodine and Xeroform around the pin sites. Following this, a dressing consisting of Betadine, Adaptic, 4x4's, Kerlix and Rip were applied to the right lower extremity. Following the procedure, the tourniquet was let down at a total of 115 minutes total tourniquet time. The patient then underwent a popliteal block while under anesthesia. Following this, the patient was returned to the postoperative anesthesia care unit with vital signs stable and vascular status intact. The patient handled the procedure as well as the anesthesia without significant complication. Postoperative orders as indicated in the patient's inpatient chart. The patient admitted for observation following the procedure.
--- NOTE | 2021-10-03 13:21 | PCM.NOTE ---
Date and Time: 10/03/21 1320 Subjective Assessment: Patient seen at bedside this a.m postop day #3 status post removal of total ankle arthroplasty, multiple bone debridement placement of antibiotic spacer and application of a multiplanar static Ilizarov external fixator. Patient is postop day #3 date of procedure 09/30/2021. Improvement in pain over the we ekend. Patient is able to wiggle toes. Sensation intact to all dermatomes to the right lower extremity. Patient denies any constitutional symptoms of infection. He has many questions. Nursing staff (Domingo) at bedside during conversation. No other pedal complaints at this time Physical Exam - Narrative Narrative Physical Exam: Podiatry Physical Exam Dressings clean dry and intact with no strikethrough on primary or secondary dressing. External fixator with no loss of position. Foot orthogonal to the longitudinal access of the tibia with no residual deformity. Patient is able to wiggle toes. Sensation intact to all dermatomes to the right lower extremity. OBJECTIVE DATA Vital Signs: Vital Signs - 24 hr Temp Pulse Resp BP Pulse Ox 10/03/21 09:30 94 L 10/03/21 09:00 96.9 F 62 21 113/63 94 L 10/03/21 07:35 97 10/03/21 05:30 97 10/03/21 05:28 97 10/03/21 03:42 97.1 F 68 20 118/72 97 10/02/21 23:35 96.9 F 75 18 107/59 94 L 10/02/21 20:32 97.0 F 68 21 120/60 95 10/02/21 20:29 93 L 10/02/21 18:48 97 10/02/21 17:00 96.9 F 63 23 110/65 93 L Pain Assessment - Last Documented Pain Intensity [right ankle] 6 Pain Intensity 6 Pain Scale Used 0-10 Pain Scale Intake and Output: Intake & Output 10/01/21 10/02/21 10/03/21 10/04/21 11:59 11:59 11:59 11:59 Intake Total 3564 2609 5902 Output Total 4215 3244 2240 Balance 1743 -1121 631 Weight 140 kg Lab Results: Lab Results-Last 24 Hours 10/02/21 10/02/21 10/03/21 Range/Units 17:09 21:21 04:18 Creatinine 0.97 (0.66-1.25) mg/dL Estimated GFR > 60.0 ML/MIN POC Glucometer 99 104 (74 to 106) mg/dL 10/03/21 10/03/21 10/03/21 Range/Units 07:22 07:23 12:08 Creatinine (0.66-1.25) mg/dL Estimated GFR ML/MIN POC Glucometer TNP 123 H 94 (74 to 106) mg/dL Radiology Exams: Radiology Procedures Category Date Time Status CHEST 2 VIEWS (PA AND LAT) Urgent Exams 10/03/21 13:14 Taken LOWER EXTREMITY WO CONTRAST [CT] Stat Exams 10/03/21 13:14 Taken Multi-Disciplinary Progress Notes: Multi-Disciplinary Progress Notes 10/03/21 13:14 Case Management Note by Jenni Jaramillo PT AGREEABLE TO REHAB STAY, DISCUSSED INSURANCE IS LIKELY TO DENY HOSPITAL BED AT HOME, HE STATES HE DOES NOT FEEL LIKE HE CAN GO HOME WITH CURRENT BED HE HAS. SPOKE WITH TATIANNA AT [facility], THEY STATE THEY WILL LOOK AT CLINICALS, THEY DO HAVE OPEN BEDS AT THIS TIME. CLINICALS FAXED, AWAITING REPLY. Initialized on 10/03/21 13:14 - END OF NOTE Assessment/Plan (1) Varus deformity, not elsewhere classified, right ankle Current Visit: Yes Status: Chronic Assessment & Plan: Patient is postop day 1 status post removal of failed total ankle arthroplasty, bone debridement to tibia fibula talus and calcaneus and application of antibiotic bone cement and application of a multilevel multiplanar Ilizarov external fixator. Patient progressing without significant complication at this time. Patient has continued complaints of pain to the inner aspect of the left ankle. Patient was postoperatively given a popliteal block and is on several narcotics at this time. Concern for medication prescribed by pain management physician Cherise that may be counteracting some of the narcotics effect. At this time increase pain control in preparation for block wearing off. We will plan to wean off of intravenous narcotics once pain is under control Will increase Lyrica to 200 mg 3 times daily Continue DVT prophylaxis Nonweightbearing to the right lower extremity. Patient permitted touchdown with frame to the ground. Nurse assessment for transfers to chair side. PT OT will reassess from a formal perspective on Sunday. Once assessed bedside commode with assistance Elevate extremity Antiembolism stocking to the contralateral extremity with sequential compression device Incentive spirometry Will plan for CT scan without contrast to the right ankle on Sunday Discussion with case management for plan for discharge. Patient requesting hospital bed for home. Keep dressings clean dry and intact. If there is strikethrough on the dressing reinforce with ABD and Kerlix with minimal compression. Monitor intake and output every shift We will follow closely Code(s): M21.171 - VARUS DEFORMITY, NOT ELSEWHERE CLASSIFIED, RIGHT ANKLE (2) Ankle varus, acquired Current Visit: Yes Status: Acute Code(s): M21.549 - ACQUIRED CLUBFOOT, UNSPECIFIED FOOT (3) Pain in right ankle Current Visit: Yes Status: Chronic Code(s): M25.571 - PAIN IN RIGHT ANKLE AND JOINTS OF RIGHT FOOT (4) Osteomyelitis due to type 2 diabetes mellitus Current Visit: Yes Status: Acute Code(s): E11.69 - TYPE 2 DIABETES MELLITUS WITH OTHER SPECIFIED COMPLICATION; M86.9 - OSTEOMYELITIS, UNSPECIFIED (5) Diabetic peripheral neuropathy associated with type 2 diabetes mellitus Current Visit: Yes Status: Acute Code(s): E11.42 - TYPE 2 DIABETES MELLITUS WITH DIABETIC POLYNEUROPATHY (6) Controlled diabetes mellitus Current Visit: Yes Status: Chronic Qualifiers: Diabetes mellitus type: type 2 Diabetes mellitus physical therapy nurse insulin use: without penitentiary use Code(s): E11.9 - TYPE 2 DIABETES MELLITUS WITHOUT COMPLICATIONS
[2021-10-03] MEDS: LASIX 20 MG PO SCH (13:29)
--- NOTE | 2021-10-03 13:43 | XRAY ---
Indication: Preoperative planning for right total ankle replacement. Multiple contiguous thin axial images obtained through the left and right ankles without contrast. Two-dimensional sagittal and coronal reformatted images obtained. Comparison: None. Osseous structures demineralized consistent with patient's age. Images through the right lower leg/ankle/foot are limited due to beam artifact from multiple external fixation devices. Resection of distal fibula, tibia plafond, and talus with a prosthesis in remnant ankle joint and surrounding tiny/small heterotopic ossifications. Ankle prosthesis appears subluxed anteriorly without obvious anchoring device or anchoring material. Moderate/advanced degenerative changes of the tarso-talocalcaneal articulation with bony sclerosis and bony remodeling. Visualized noncontrasted soft tissues are unremarkable. Visualized left lower leg/ankle/foot demonstrates mild talotibial degenerative changes with tiny bony spurring. No acute fracture, dislocation, or osseous destructive process. Visualized noncontrasted soft tissues unremarkable. Impression: 1. Beam artifact from multiple external fixation device limits right lower extremity. 2. Right ankle postsurgical changes with anterior subluxed prosthesis. 3. Osteopenia and right mid to hindfoot degenerative changes.
--- NOTE | 2021-10-03 15:12 | XRAY ---
Indication: retirement placement. Comparison: None AP/lateral chest obtained. Lateral view slightly limited by respiration artifact. No focal infiltrate, consolidation, or large effusion. Heart not enlarged. Bony thorax intact with mild osteopenia and degenerative changes. Impression: Nonacute limited chest.
--- NOTE | 2021-10-03 16:34 | PCM.NOTE ---
Date and Time: 10/03/21 1631 Subjective Assessment: patient c/o increased pain today after getting in a wheelchair to have CT scan done, he is using a large amount of dilaudid via MAIL CARRIER with norco as well and nursing staff reports possible discharge to [facility] tomorrow. Objective Exam General Appearance: other (irritable and unpleasant) Skin Exam: normal color, warm, dry Wound Assessment: Skin/Wound Assessment Wound/Incision Assessment Start: 09/30/21 17:37 Text: Status: Active Freq: Q6H Protocol: Document 10/03/21 08:00 EK (Rec: 10/03/21 08:10 EK [id number]) Wound/Incision Assessment Right Ankle Wound Assessment Shift Assessment Wound Type Incision Wound Stage Non Pressure Wound Dressing Status Dry & Intact Drainage Amount None Drainage Odor None/Absent General Appearance Clean/Dry Surrounding Tissue [place] Comment dressing C/D/I - pt has sensation to toes and is able to move on command. Cap refill less than 3 sec. - all remains true Wound Photo Photo Taken No Respiratory Exam: normal breath sounds, lungs clear, No respiratory distress Cardiovascular Exam: regular rate/rhythm, normal heart sounds Gastrointestinal/Abdomen Exam: soft, No tenderness, No mass Extremity Exam: other (right foot in poot, neurovascular intact) OBJECTIVE DATA Vital Signs: Vital Signs - 24 hr Temp Pulse Resp BP Pulse Ox 10/03/21 13:00 96.9 F 62 113/63 94 L 10/03/21 09:30 94 L 10/03/21 09:00 96.9 F 62 21 113/63 94 L 10/03/21 07:35 97 10/03/21 05:30 97 10/03/21 05:28 97 10/03/21 03:42 97.1 F 68 20 118/72 97 10/02/21 23:35 96.9 F 75 18 107/59 94 L 10/02/21 20:32 97.0 F 68 21 120/60 95 10/02/21 20:29 93 L 10/02/21 18:48 97 10/02/21 17:00 96.9 F 63 23 110/65 93 L Pain Assessment - Last Documented Pain Intensity [right ankle] 6 Pain Intensity 7 Pain Scale Used 0-10 Pain Scale Intake and Output: Intake & Output 10/01/21 10/02/21 10/03/21 10/04/21 11:59 11:59 11:59 11:59 Intake Total 2059 7077 4781 240 Output Total 0116 1355 4156 700 Balance 1743 1121 631 -460 Weight 140 kg Lab Results: Lab Results-Last 24 Hours 10/02/21 10/02/21 10/03/21 Range/Units 17:09 21:21 04:18 Creatinine 0.97 (0.66-1.25) mg/dL Estimated GFR > 60.0 ML/MIN POC Glucometer 99 104 (74 to 106) mg/dL 10/03/21 10/03/21 10/03/21 Range/Units 07:22 07:23 12:08 Creatinine (0.66-1.25) mg/dL Estimated GFR ML/MIN POC Glucometer TNP 123 H 94 (74 to 106) mg/dL Radiology Exams: Radiology Procedures Category Date Time Status CHEST 2 VIEWS (PA AND LAT) Urgent Exams 10/03/21 13:41 Completed LOWER EXTREMITY WO CONTRAST [CT] Stat Exams 10/03/21 13:14 Completed Multi-Disciplinary Progress Notes: Multi-Disciplinary Progress Notes 10/03/21 13:14 Case Management Note by Jenni Jaramillo PT AGREEABLE TO REHAB STAY, DISCUSSED INSURANCE IS LIKELY TO DENY HOSPITAL BED AT HOME, HE STATES HE DOES NOT FEEL LIKE HE CAN GO HOME WITH CURRENT BED HE HAS. SPOKE WITH TATIANNA AT [facility], THEY STATE THEY WILL LOOK AT CLINICALS, THEY DO HAVE OPEN BEDS AT THIS TIME. CLINICALS FAXED, AWAITING REPLY. Initialized on 10/03/21 13:14 - END OF NOTE Assessment/Plan (1) Osteomyelitis due to type 2 diabetes mellitus Current Visit: Yes Status: Acute Assessment & Plan: on vanc, will change to po percocet in attempt to get better pain control with no MAIL CARRIER being available at [facility], encouraged not to use, discussed discontinuation but patient angry and upset about discussing potential discharge, told him he can speak with Dr Chawla in the morning regarding his disposition. Code(s): E11.69 - TYPE 2 DIABETES MELLITUS WITH OTHER SPECIFIED COMPLICATION; M86.9 - OSTEOMYELITIS, UNSPECIFIED (2) Controlled diabetes mellitus Current Visit: Yes Status: Chronic Qualifiers: Diabetes mellitus type: type 2 Diabetes mellitus buttermaker insulin use: without fci use Code(s): E11.9 - TYPE 2 DIABETES MELLITUS WITHOUT COMPLICATIONS (3) 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 Code(s): T84.019A - BROKEN INTERNAL JOINT PROSTHESIS, UNSP SITE, INIT ENCNTR
[2021-10-03] MEDS: PERCOCET TABLET 5/325MG PO PRN ×2 (17:18→21:45)
[2021-10-03] MEDS: Lactated Ringers 1,000 ML IV SCH (21:35)
[2021-10-03] MEDS: BUSPAR 5 MG PO SCH (21:43)
[2021-10-03] MEDS: BENADRYL 25 MG CAPSULE PO PRN (21:46)
[2021-10-04] MEDS: VANCOMYCIN 1 GRAM/200 ML BAG 1 GM/200 ML PIGGYBACK IV SCH ×3 (02:43→18:27)
[2021-10-04] MEDS: PERCOCET TABLET 5/325MG PO PRN ×5 (02:44→22:29)
[2021-10-04 05:28] LABS: ANION GAP 8.7 MEQ/L (5-15); BLOOD UREA NITROGEN 32 mg/dL (9-20); CHLORIDE 98 mmol/L (98-107); Calcium 9.1 mg/dL (8.4-10.2); Carbon Dioxide 32 mmol/L (22-30); Creatinine 1 1.01 mg/dL (0.66-1.25); EST GLOMERULAR FILTRATION RATE > 60.0 ML/MIN; Glucose 90 mg/dL (74-106); MAGNESIUM 1.5 mg/dL (1.6-2.3); Potassium 4.6 mmol/L (3.5-5.1); SODIUM 134 mmol/L (137-145)
[2021-10-04 05:36] LABS: Absolute Neutrophil Ct (ANC) 3.02 (1.4-6.9); Basophil (Absolute #) 0.01 (0-0.4); Eosinophil (Absolute #) 0.13 (0-0.5); Hematocrit 33.5 % (42-50); Hemoglobin 10.4 gm/dl (12.5-18.0); Lymphocytes % 39.7 % (24.0-44.0); Mean Cell Volume 94.9 fl (78-100); Mean Corpuscular Hemoglobin 29.5 pg (26-32); Mean Platelet Volume 10.3 fl (7.5-11.0); Monocyte (Absolute #) 0.79 (0.0-1.3); Monocytes % 12.1 % (0.0-12.0); Platelet Count 252 K/mm3 (150-450); Red Blood Count 3.53 M/mm3 (4.1-5.6); Red Cell Distribution Width 14.2 % (11.5-14.0); White Blood Count 6.6 K/mm3 (4.0-10.5)
[2021-10-04] MEDS: Glucophage 500 MG PO SCH (07:58)
--- NOTE | 2021-10-04 08:04 | PCM.NOTE ---
Date and Time: 10/04/21802 Subjective Assessment: Patient seen at bedside this a.m postop day #4 status post removal of total ankle arthroplasty, multiple bone debridement placement of antibiotic spacer and application of a multiplanar static Ilizarov external fixator. Patient is postop day #4 date of procedure 09/30/2021. Improvement in pain patient admits more restful in last 12 hours. Patient is able to wiggle toes. Sensation intact to all dermatomes to the right lower extremity. Patient denies any constitutional symptoms of infection. No other pedal complaints at this time Physical Exam - Narrative Narrative Physical Exam: Podiatry Physical Exam Dressings clean dry and intact with no strikethrough on primary or secondary dressing. External fixator with no loss of position. Foot orthogonal to the longitudinal access of the tibia with no residual deformity. Patient is able to wiggle toes. Sensation intact to all dermatomes to the right lower extremity. OBJECTIVE DATA Vital Signs: Vital Signs - 24 hr Temp Pulse Resp BP Pulse Ox 10/04/21 07:48 95 10/04/21 07:46 98.2 F 68 16 113/61 94 L 10/04/21 05:30 97 10/04/21 04:33 97.3 F 69 25 H 121/63 95 10/04/21 00:19 97.7 F 71 20 124/62 95 10/03/21 20:02 94 L 10/03/21 18:52 98 10/03/21 17:00 97.1 F 67 21 121/60 94 L 10/03/21 13:00 96.9 F 62 113/63 94 L 10/03/21 09:30 94 L 10/03/21 09:00 96.9 F 62 21 113/63 94 L Pain Assessment - Last Documented Pain Intensity [right ankle] 6 Pain Intensity 6 Pain Scale Used 0-10 Pain Scale Intake and Output: Intake & Output 10/01/21 10/02/21 10/03/21 10/04/21 11:59 11:59 11:59 11:59 Intake Total 4239 2359 4781 2400 Output Total 3850 5700 4150 4100 Balance 1743 -1121 631 -1700 Weight 140 kg Lab Results: Lab Results-Last 24 Hours 10/03/21 10/03/21 10/03/21 Range/Units 12:08 16:30 21:17 WBC (4.0-10.5) K/mm3 RBC (4.1-5.6) M/mm3 Hgb (12.5-18.0) gm/dl Hct (42-50) % MCV (78-100) fl MCH (26-32) pg MCHC (32-36) g/dl RDW (11.5-14.0) % Plt Count (150-450) K/mm3 MPV (7.5-11.0) fl Gran % (36.0-66.0) % Eos # (Auto) (0-0.5) Absolute Lymphs (auto) (1.0-4.6) Absolute Monos (auto) (0.0-1.3) Lymphocytes % (24.0-44.0) % Monocytes % (0.0-12.0) % Eosinophils % (0.00-5.0) % Basophils % (0.0-0.4) % Absolute Granulocytes (1.4-6.9) Basophils # (0-0.4) Sodium (137-145) mmol/L Potassium (3.5-5.1) mmol/L Chloride (98-107) mmol/L Carbon Dioxide (22-30) mmol/L Anion Gap (5-15) MEQ/L BUN (9-20) mg/dL Creatinine (0.66-1.25) mg/dL Estimated GFR ML/MIN Glucose (74-106) mg/dL POC Glucometer 94 99 104 (74 to 106) mg/dL Calcium (8.4-10.2) mg/dL Magnesium (1.6-2.3) mg/dL 10/04/21 10/04/21 10/04/21 Range/Units 04:15 04:15 07:24 WBC 6.6 (4.0-10.5) K/mm3 RBC 3.53 L (4.1-5.6) M/mm3 Hgb 10.4 L (12.5-18.0) gm/dl Hct 33.5 L (42-50) % MCV 94.9 (78-100) fl MCH 29.5 (26-32) pg MCHC 31.0 L (32-36) g/dl RDW 14.2 H (11.5-14.0) % Plt Count 252 (150-450) K/mm3 MPV 10.3 (7.5-11.0) fl Gran % 46.0 (36.0-66.0) % Eos # (Auto) 0.13 (0-0.5) Absolute Lymphs (auto) 2.60 (1.0-4.6) Absolute Monos (auto) 0.79 (0.0-1.3) Lymphocytes % 39.7 (24.0-44.0) % Monocytes % 12.1 H (0.0-12.0) % Eosinophils % 2.0 (0.00-5.0) % Basophils % 0.2 (0.0-0.4) % Absolute Granulocytes 3.02 (1.4-6.9) Basophils # 0.01 (0-0.4) Sodium 134 L (137-145) mmol/L Potassium 4.6 (3.5-5.1) mmol/L Chloride 98 (98-107) mmol/L Carbon Dioxide 32 H (22-30) mmol/L Anion Gap 8.7 (5-15) MEQ/L BUN 32 H (9-20) mg/dL Creatinine 1.01 (0.66-1.25) mg/dL Estimated GFR > 60.0 ML/MIN Glucose 90 (74-106) mg/dL POC Glucometer 103 (74 to 106) mg/dL Calcium 9.1 (8.4-10.2) mg/dL Magnesium 1.5 L (1.6-2.3) mg/dL Radiology Exams: Radiology Procedures Category Date Time Status CHEST 2 VIEWS (PA AND LAT) Urgent Exams 10/03/21 13:41 Completed LOWER EXTREMITY WO CONTRAST [CT] Stat Exams 10/03/21 13:14 Completed Multi-Disciplinary Progress Notes: Multi-Disciplinary Progress Notes 10/03/21 13:14 Case Management Note by Jenni Jaramillo PT AGREEABLE TO REHAB STAY, DISCUSSED INSURANCE IS LIKELY TO DENY HOSPITAL BED AT HOME, HE STATES HE DOES NOT FEEL LIKE HE CAN GO HOME WITH CURRENT BED HE HAS. SPOKE WITH TATIANNA AT [facility], THEY STATE THEY WILL LOOK AT CLINICALS, THEY DO HAVE OPEN BEDS AT THIS TIME. CLINICALS FAXED, AWAITING REPLY. Initialized on 10/03/21 13:14 - END OF NOTE Assessment/Plan (1) Varus deformity, not elsewhere classified, right ankle Current Visit: Yes Status: Chronic Assessment & Plan: Patient is postop day 4 status post removal of failed total ankle arthroplasty, bone debridement to tibia fibula talus and calcaneus and application of antibiotic bone cement and application of a multilevel multiplanar Ilizarov external fixator. Patient progressing without significant complication at this time. Plan to slowly wean off of intravenous narcotics over next 24 hour. Patient advised pain can be managed but not eliminated all together. Patient voices understanding of this. Continue DVT prophylaxis Nonweightbearing to the right lower extremity. Patient permitted touchdown with frame to the ground. PT assess from a formal perspective on today. Once assessed bedside commode with assistance Elevate extremity Antiembolism stocking to the contralateral extremity with sequential compression device Incentive spirometry CT obtained Discussion with case management for plan for discharge. Patient amenable to NH stay. Dressing change to take place later today. If there is strikethrough on the dressing reinforce with ABD and Kerlix with minimal compression. Monitor intake and output every shift We will follow closely Dc plan for tomorrow vs Code(s): M21.171 - VARUS DEFORMITY, NOT ELSEWHERE CLASSIFIED, RIGHT ANKLE (2) Ankle varus, acquired Current Visit: Yes Status: Acute Code(s): M21.549 - ACQUIRED CLUBFOOT, UNSPECIFIED FOOT (3) Pain in right ankle Current Visit: Yes Status: Chronic Code(s): M25.571 - PAIN IN RIGHT ANKLE AND JOINTS OF RIGHT FOOT (4) Osteomyelitis due to type 2 diabetes mellitus Current Visit: Yes Status: Acute Code(s): E11.69 - TYPE 2 DIABETES MELLITUS WITH OTHER SPECIFIED COMPLICATION; M86.9 - OSTEOMYELITIS, UNSPECIFIED (5) Diabetic peripheral neuropathy associated with type 2 diabetes mellitus Current Visit: Yes Status: Acute Code(s): E11.42 - TYPE 2 DIABETES MELLITUS WITH DIABETIC POLYNEUROPATHY (6) Controlled diabetes mellitus Current Visit: Yes Status: Chronic Qualifiers: Diabetes mellitus type: type 2 Diabetes mellitus correction insulin use: without watermaster use Code(s): E11.9 - TYPE 2 DIABETES MELLITUS WITHOUT COMPLICATIONS
[2021-10-04] MEDS ORDERED: PHARMACY DOSING REQUIRED: DILAUDID PCA IV PRN (08:20)
[2021-10-04] MEDS ORDERED: DILAUDID 1 MG/1ML PCA IV PRN ×2 (08:22→22:00)
--- NOTE | 2021-10-04 08:25 | PCM.NOTE ---
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 Objective Exam General Appearance: no apparent distress, obese Wound Assessment: Skin/Wound Assessment Wound/Incision Assessment Start: 09/30/21 17:37 Text: Status: Active Freq: Q6H Protocol: Document 10/04/21 02:00 RB (Rec: 10/04/21 05:48 RB [id number]) Wound/Incision Assessment Right Ankle Wound Assessment Shift Assessment Wound Type Incision Wound Stage Non Pressure Wound Dressing Status Dry & Intact Drainage Amount None Drainage Odor None/Absent General Appearance Clean/Dry Surrounding Tissue [place] Comment dressing C/D/I - pt has sensation to toes and is able to move on command. Cap refill less than 3 sec. - all remains true Wound Photo Photo Taken No Respiratory Exam: normal breath sounds, lungs clear, No respiratory distress Cardiovascular Exam: regular rate/rhythm, normal heart sounds Gastrointestinal/Abdomen Exam: soft, No tenderness, No mass Extremity Exam: other (right foot with fixator in place, neurovascularly intact) OBJECTIVE DATA Vital Signs: Vital Signs - 24 hr Temp Pulse Resp BP Pulse Ox 10/04/21 07:48 95 10/04/21 07:46 98.2 F 68 16 113/61 94 L 10/04/21 05:30 97 10/04/21 04:33 97.3 F 69 25 H 121/63 95 10/04/21 00:19 97.7 F 71 20 124/62 95 10/03/21 20:02 94 L 10/03/21 18:52 98 10/03/21 17:00 97.1 F 67 21 121/60 94 L 10/03/21 13:00 96.9 F 62 113/63 94 L 10/03/21 09:30 94 L 10/03/21 09:00 96.9 F 62 21 113/63 94 L Pain Assessment - Last Documented Pain Intensity [right ankle] 6 Pain Intensity 6 Pain Scale Used 0-10 Pain Scale Intake and Output: Intake & Output 10/01/21 10/02/21 10/03/21 10/04/21 11:59 11:59 11:59 11:59 Intake Total 7482 0188 4719 2400 Output Total 3850 5700 4150 4100 Balance 1743 -1121 631 -1700 Weight 140 kg Lab Results: Lab Results-Last 24 Hours 10/03/21 10/03/21 10/03/21 Range/Units 12:08 16:30 21:17 WBC (4.0-10.5) K/mm3 RBC (4.1-5.6) M/mm3 Hgb (12.5-18.0) gm/dl Hct (42-50) % MCV (78-100) fl MCH (26-32) pg MCHC (32-36) g/dl RDW (11.5-14.0) % Plt Count (150-450) K/mm3 MPV (7.5-11.0) fl Gran % (36.0-66.0) % Eos # (Auto) (0-0.5) Absolute Lymphs (auto) (1.0-4.6) Absolute Monos (auto) (0.0-1.3) Lymphocytes % (24.0-44.0) % Monocytes % (0.0-12.0) % Eosinophils % (0.00-5.0) % Basophils % (0.0-0.4) % Absolute Granulocytes (1.4-6.9) Basophils # (0-0.4) Sodium (137-145) mmol/L Potassium (3.5-5.1) mmol/L Chloride (98-107) mmol/L Carbon Dioxide (22-30) mmol/L Anion Gap (5-15) MEQ/L BUN (9-20) mg/dL Creatinine (0.66-1.25) mg/dL Estimated GFR ML/MIN Glucose (74-106) mg/dL POC Glucometer 94 99 104 (74 to 106) mg/dL Calcium (8.4-10.2) mg/dL Magnesium (1.6-2.3) mg/dL 10/04/21 10/04/21 10/04/21 Range/Units 04:15 04:15 07:24 WBC 6.6 (4.0-10.5) K/mm3 RBC 3.53 L (4.1-5.6) M/mm3 Hgb 10.4 L (12.5-18.0) gm/dl Hct 33.5 L (42-50) % MCV 94.9 (78-100) fl MCH 29.5 (26-32) pg MCHC 31.0 L (32-36) g/dl RDW 14.2 H (11.5-14.0) % Plt Count 252 (150-450) K/mm3 MPV 10.3 (7.5-11.0) fl Gran % 46.0 (36.0-66.0) % Eos # (Auto) 0.13 (0-0.5) Absolute Lymphs (auto) 2.60 (1.0-4.6) Absolute Monos (auto) 0.79 (0.0-1.3) Lymphocytes % 39.7 (24.0-44.0) % Monocytes % 12.1 H (0.0-12.0) % Eosinophils % 2.0 (0.00-5.0) % Basophils % 0.2 (0.0-0.4) % Absolute Granulocytes 3.02 (1.4-6.9) Basophils # 0.01 (0-0.4) Sodium 134 L (137-145) mmol/L Potassium 4.6 (3.5-5.1) mmol/L Chloride 98 (98-107) mmol/L Carbon Dioxide 32 H (22-30) mmol/L Anion Gap 8.7 (5-15) MEQ/L BUN 32 H (9-20) mg/dL Creatinine 1.01 (0.66-1.25) mg/dL Estimated GFR > 60.0 ML/MIN Glucose 90 (74-106) mg/dL POC Glucometer 103 (74 to 106) mg/dL Calcium 9.1 (8.4-10.2) mg/dL Magnesium 1.5 L (1.6-2.3) mg/dL Radiology Exams: Radiology Procedures Category Date Time Status CHEST 2 VIEWS (PA AND LAT) Urgent Exams 10/03/21 13:41 Completed LOWER EXTREMITY WO CONTRAST [CT] Stat Exams 10/03/21 13:14 Completed Multi-Disciplinary Progress Notes: Multi-Disciplinary Progress Notes 10/03/21 13:14 Case Management Note by Jenni Jaramillo PT AGREEABLE TO REHAB STAY, DISCUSSED INSURANCE IS LIKELY TO DENY HOSPITAL BED AT HOME, HE STATES HE DOES NOT FEEL LIKE HE CAN GO HOME WITH CURRENT BED HE HAS. SPOKE WITH TATIANNA AT [facility], THEY STATE THEY WILL LOOK AT CLINICALS, THEY DO HAVE OPEN BEDS AT THIS TIME. CLINICALS FAXED, AWAITING REPLY. Initialized on 10/03/21 13:14 - END OF NOTE Assessment/Plan (1) Osteomyelitis due to type 2 diabetes mellitus Current Visit: Yes Status: Acute Assessment & Plan: on vanc, path pending. 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 labs reviewed today Code(s): E11.69 - TYPE 2 DIABETES MELLITUS WITH OTHER SPECIFIED COMPLICATION; M86.9 - OSTEOMYELITIS, UNSPECIFIED (2) Controlled diabetes mellitus Current Visit: Yes Status: Chronic Assessment & Plan: not on any therapy and accuchecks are in normal range, patient claims he has never been a diabetic, d/c accuchecks. 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
[2021-10-04] MEDS: ZOCOR 20MG PO SCH (09:09)
[2021-10-04] MEDS: LASIX 20 MG PO SCH (09:09)
[2021-10-04] MEDS: Calcium 500MG W/Vit D Tablet PO SCH (09:09)
[2021-10-04] MEDS: Zestril 10 MG PO SCH (09:09)
[2021-10-04] MEDS: LYRICA 100MG PO SCH ×3 (09:09→22:11)
[2021-10-04] MEDS: MINERAL OIL PO SCH ×2 (09:10→22:12)
[2021-10-04] MEDS: VITAMIN D PO SCH (09:10)
[2021-10-04] MEDS: PATIENT OWN MEDICATION PO SCH ×3 (09:11→22:11)
[2021-10-04] MEDS: Trileptal 300 MG Tablet PO SCH ×2 (09:12→22:12)
[2021-10-04] MEDS: Proscar 5 MG PO SCH (09:12)
[2021-10-04] MEDS: ENOXAPARIN SODIUM SQ SCH (09:13)
[2021-10-04] MEDS ORDERED: TROUGH DRUG LEVELS IJ ONE (09:30)
[2021-10-04] MEDS: Lactated Ringers 1,000 ML IV SCH (22:01)
[2021-10-04] MEDS: BUSPAR 5 MG PO SCH (22:11)
[2021-10-04] MEDS: BENADRYL 25 MG CAPSULE PO PRN (22:12)
[2021-10-05] MEDS: VANCOMYCIN 1 GRAM/200 ML BAG 1 GM/200 ML PIGGYBACK IV SCH ×2 (02:36→10:27)
[2021-10-05] MEDS: PERCOCET TABLET 5/325MG PO PRN ×3 (02:36→13:21)
[2021-10-05] MEDS: Lactated Ringers 1,000 ML IV SCH (06:31)
[2021-10-05] MEDS: Glucophage 500 MG PO SCH (08:14)
[2021-10-05] MEDS: Calcium 500MG W/Vit D Tablet PO SCH (10:27)
[2021-10-05] MEDS: VITAMIN D PO SCH (10:27)
[2021-10-05] MEDS: LYRICA 100MG PO SCH ×3 (10:27→21:46)
[2021-10-05] MEDS: Trileptal 300 MG Tablet PO SCH ×2 (10:28→21:46)
[2021-10-05] MEDS: Proscar 5 MG PO SCH (10:28)
[2021-10-05] MEDS: MINERAL OIL PO SCH ×2 (10:28→21:45)
[2021-10-05] MEDS: Zestril 10 MG PO SCH (10:28)
[2021-10-05] MEDS: LASIX 20 MG PO SCH (10:28)
[2021-10-05] MEDS: ZOCOR 20MG PO SCH (10:28)
[2021-10-05] MEDS: PATIENT OWN MEDICATION PO SCH ×3 (10:29→21:51)
[2021-10-05] MEDS: ENOXAPARIN SODIUM SQ SCH (10:29)
[2021-10-05] MEDS ORDERED: PHARMACY DOSING REQUEST MC ONE (12:21)
[2021-10-05] MEDS: CEFAZOLIN 2 GM-D5W BAG** 2 GM/50 ML ML IV SCH ×2 (15:08→21:45)
[2021-10-05] MEDS: OXYCODONE-ACETAMINOPHEN 10-325 PO PRN ×2 (17:31→21:46)
[2021-10-05] MEDS: BENADRYL 25 MG CAPSULE PO PRN (21:47)
[2021-10-05] MEDS: BUSPAR 5 MG PO SCH (21:47)
[2021-10-06] MEDS: Lactated Ringers 1,000 ML IV SCH (02:00)
[2021-10-06] MEDS: OXYCODONE-ACETAMINOPHEN 10-325 PO PRN ×4 (02:00→14:17)
[2021-10-06 04:36] LABS: INR 0.97 (0.8-3.0); PROTIME 11.4 SECONDS (9.4-12.5)
[2021-10-06 04:38] LABS: PTT 30.3 SECONDS (25.1-36.5)
[2021-10-06] MEDS: CEFAZOLIN 2 GM-D5W BAG** 2 GM/50 ML ML IV SCH ×2 (06:01→14:18)
[2021-10-06] MEDS: Glucophage 500 MG PO SCH (08:10)
[2021-10-06] MEDS: LYRICA 100MG PO SCH ×2 (09:40→14:18)
[2021-10-06] MEDS: Proscar 5 MG PO SCH (09:40)
[2021-10-06] MEDS: Calcium 500MG W/Vit D Tablet PO SCH (09:40)
[2021-10-06] MEDS: Trileptal 300 MG Tablet PO SCH (09:41)
[2021-10-06] MEDS: MINERAL OIL PO SCH (09:41)
[2021-10-06] MEDS: VITAMIN D PO SCH (09:41)
[2021-10-06] MEDS: ZOCOR 20MG PO SCH (09:41)
[2021-10-06] MEDS: Zestril 10 MG PO SCH (09:41)
[2021-10-06] MEDS: LASIX 20 MG PO SCH (09:42)
[2021-10-06] MEDS: PATIENT OWN MEDICATION PO SCH ×2 (09:48→09:49)
--- NOTE | 2021-10-06 11:26 | PCM.NOTE ---
Date and Time: 10/06/21 1124 Subjective Assessment: Patient seen at bedside this a.m postop day #5 status post removal of total ankle arthroplasty, multiple bone debridement placement of antibiotic spacer and application of a multiplanar static Ilizarov external fixator. Patient is postop day #5 date of procedure 09/30/2021. Trasnitioning off DRIER HELPER and on to oral pain control. Patient is able to wiggle toes. Sensation intact to all dermatomes to the right lower extremity. Patient denies any constitutional symptoms of infection. No other pedal complaints at this time Physical Exam - Narrative Narrative Physical Exam: Podiatry Physical Exam Dressings clean dry and intact with no strikethrough on primary or secondary dressing on presentation. External fixator with no loss of position. Foot orthogonal to the longitudinal access of the tibia with no residual deformity. Patient is able to wiggle toes. Dressing changed yesterday revealing coapt surgical incision with stitches clean dry and intact. No evidence of active bleeding, no evidence of surgical wound dehisence. Minimal ecchymosis to perimalleolar area. no pain on compression of calf. Sensation intact to all dermatomes to the right lower extremity. OBJECTIVE DATA Vital Signs: Vital Signs - 24 hr Temp Pulse Resp BP Pulse Ox 10/06/21 07:33 97.5 F 80 16 109/58 93 L 10/06/21 04:30 97.7 F 67 17 143/79 96 10/06/21 00:28 98.0 F 72 18 139/69 96 10/05/21 19:14 97.9 F 69 20 124/75 96 10/05/21 17:00 96.9 F 71 23 138/86 95 10/05/21 13:00 97.5 F 65 21 149/78 96 Pain Assessment - Last Documented Pain Intensity [right ankle] 6 Pain Intensity 3 Pain Scale Used 0-10 Pain Scale Intake and Output: Intake & Output 10/03/21 10/04/21 10/05/21 10/06/21 11:59 11:59 11:59 11:59 Intake Total 4787 3180 5148 4835 Output Total 4150 5050 4550 5700 Balance 631 -1870 598 -865 Weight 140 kg Lab Results: Lab Results-Last 24 Hours 10/05/21 10/06/21 10/06/21 Range/Units 21:15 04:15 07:04 PT 11.4 (9.4-12.5) SECONDS INR 0.97 (0.8-3.0) APTT 30.3 (25.1-36.5) SECONDS POC Glucometer 94 149 H (74 to 106) mg/dL Multi-Disciplinary Progress Notes: Multi-Disciplinary Progress Notes 10/05/21 17:39 Physical Therapy Note by [email or web address] AM RX 12:00-12:35 PT. SEEN BY PKalyn EARLY P.M. IN BED UPON P.T. ARRIVAL TO ROOM. REPORTS HE IS BEING WEANED OFF OF DRIER HELPER. RATES L ANKLE/FFOT PN AT 01/18. POST-OP DRESSING C HANGED PER DR. MOORE THIS A.M. PT. AGREEABLE TO GET UP IN CHAIR FOR LUNCH. PERFORMED SUPINE TO SIT - W/ CGA-SBA. PERFORMED STAND PIVOT TRANSFER NWB L LE W/ CGA W/ WALKER. PT. PERFORMED SEATED LE EX'S W/ 3# WEIGHT R LE OF HEEL SLIDES, SLRS, ANKLE PUMPS QUAD SETS, ABD SLIDES. PERFORMED TOE AROM, QUAD SETS, AND SLRS L LE. CP APPLIED AFTER RX. PM RX - [id number] PT. SEEN W/ OT TO ASSESS MOBILITY W/ KNEE SCOOTER. PT. ABLE TO TRANSFER ON TO KNEE SCOOTER W/ CGA-SBA. AMBULATED ~ 60' NWB W/ KNEE SCOOTER AND CGA-SBA. PT. DID REPORT SOME PINCHING ON R KNEE AREA W/ WB ON SCOOTER WHICH IS LIKELY D/T PROXIMAL AREA OF EXTERNAL FIXATOR. PT. ABLE TO NEGOTIATE TURNS AND MOVE FORWARD AND BACKWARD W/ KNEE SCOOTER MOD I. REPORTS HE PLANS TO BORROW HOSPITAL BED FOR USE AT HOME UPON D/C IF HE IS NOT ACCEPTED AT [facility] FOR REHAB. WILL D/C HOME W/ HHC IF NOT ACCEPTED AT [facility]. Initialized on 10/05/21 17:39 - END OF NOTE 10/05/21 17:33 Occupational Therapy Note by Emely Portillo OCCUPATIONAL THERAPY NOTE (16:45-17:05): EDUCATION PROVIDED ON ADL SEQUENCING UPON RETURN TO HOME INCLUDING TOILETING MANAGEMENT WITH BSC. PATIENT REPORTS THAT MOTHER WILL ASSIST. PATIENT COMPLETES BED MOBILITY, BASIC TRANSFERS, AND FUNCTIONAL MOBILITY ON KNEE SCOOTER APPROPRIATELY. VERBAL CUES PROVIDED ON TOILET TRANSFER; HOWEVER, PATIENT AWAITING NEXT DAY FOR TOILET TRANSFER. Initialized on 10/05/21 17:33 - END OF NOTE 10/05/21 14:05 Case Management Note by Adelina Pavon UPDATES CLINICAL WITH CURRENT MED LIST FAXED TO [facility] AT THIS TIME Initialized on 10/05/21 14:05 - END OF NOTE 10/05/21 12:49 Case Management Note by Adelina Pavon LEFT MESSAGE WITH [facility] THAT OSCAR CHANGED ORDER FOR VANC TO IV CEFAZOLIN 2 GM IV Q8 HRS AND THAT HE PLANS FOR HIM TO STAY ON THAT FOR 6 WEEKS Initialized on 10/05/21 12:49 - END OF NOTE Assessment/Plan (1) Varus deformity, not elsewhere classified, right ankle Current Visit: Yes Status: Chronic Assessment & Plan: Patient is postop day 5 status post removal of failed total ankle arthroplasty, bone debridement to tibia fibula talus and calcaneus and application of antibiotic bone cement and application of a multilevel multiplanar Ilizarov external fixator. Patient progressing without significant complication at this time. Dressing changed today revealing intact surgical insicison with coapt skin edges. Healing to surgical site with stitches clean dry and intact. Weaning off of DRIER HELPER and tolerating pain with PO pain meds at this time. Continue DVT prophylaxis on DC will switch to PO 325 mg aspirin daily. Nonweightbearing to the right lower extremity. Patient permitted touchdown with frame to the ground. Elevate extremity Antiembolism stocking to the contralateral extremity with sequential compression device Incentive spirometry Awaiting surgical path at this time. Will dc with PO clinda and cipro. If surgical path positive for osteomyelitis will plan for IV abc for 6 weeks before stage 2 of reconstruction. Discussion with case management for plan for discharge. [facility] denied [facility]. Patient is amenable to go home at this time. will set up home health care if IV abx required and for periodic dressing changes and pin care. Patient denies being diabetic however glyburide listed as home medication which leads me to believe he is extremely well controlled or misdiagnosed. Charcot neuroarthropathy rare in diabetic population. Chances of charcot in non diabetic is very rare. Ok for DC when all criteria met. Code(s): M21.171 - VARUS DEFORMITY, NOT ELSEWHERE CLASSIFIED, RIGHT ANKLE (2) Ankle varus, acquired Current Visit: Yes Status: Acute Code(s): M21.549 - ACQUIRED CLUBFOOT, UNSPECIFIED FOOT (3) Pain in right ankle Current Visit: Yes Status: Chronic Code(s): M25.571 - PAIN IN RIGHT ANKLE AND JOINTS OF RIGHT FOOT (4) Osteomyelitis due to type 2 diabetes mellitus Current Visit: Yes Status: Acute Code(s): E11.69 - TYPE 2 DIABETES MELLITUS WITH OTHER SPECIFIED COMPLICATION; M86.9 - OSTEOMYELITIS, UNSPECIFIED (5) Diabetic peripheral neuropathy associated with type 2 diabetes mellitus Current Visit: Yes Status: Acute Code(s): E11.42 - TYPE 2 DIABETES MELLITUS WITH DIABETIC POLYNEUROPATHY (6) Controlled diabetes mellitus Current Visit: Yes Status: Chronic Qualifiers: Diabetes mellitus type: type 2 Diabetes mellitus longterm insulin use: without longterm use Code(s): E11.9 - TYPE 2 DIABETES MELLITUS WITHOUT COMPLICATIONS
[2021-10-06 12:43] VITALS: BP 139/78; PULSE 71; O2SAT 96
--- NOTE | 2021-10-06 13:23 | PCM.DCORD ---
- Discharge Disposition: HOME HEALTH SERVICE Condition: Stable Prescriptions: New Ciprofloxacin [Cipro 500 MG] 500 mg PO DAILY #10 tablet clindamycin HCL [Clindamycin HCl] 150 mg PO BID 10 Days #20 cap Aspirin EC 325 mg [Ecotrin 325 MG] 325 mg PO DAILY #30 Oxycodone / APAP 10/325 mg [Oxycodone-Acetaminophen 10-325] 1 tab PO Q4H PRN PRN tablet PRN Reason: Pain Magnesium Oxide 400 mg PO DAILY #30 tablet Oxycodone / APAP 10/325 mg [Oxycodone-Acetaminophen 10-325] 1 tab PO Q4H PRN PRN tablet PRN Reason: Pain Continue Aspirin 81 gm Chew [Baby Aspirin 81 mg Chew] 81 mg PO DAILY Vit B/Min/Saw [place] [Urinozinc Prost Complx [facility] Cp] 1 each PO BID Tumeric/Ging/Orange/Oreg/Capryl [Candicidal Capsule] 1 each PO DAILY Lidocaine HCl 2% Jelly [Xylocaine 2% JELLY] 5 ml MM DAILY PRN PRN PRN Reason: Pain Finasteride 5 mg [Proscar 5 MG] 5 mg PO DAILY Celecoxib 100 mg [celeBREX 100 MG] 200 mg PO DAILY Calcium Carbonate/Vitamin D3 [Sv Calc 600 mg-D3 12.5MCG Sfgl] 1 each PO DAILY Buspirone HCl 5 mg [Buspar 5 mg] 10 mg PO HS Pregabalin 200 mg PO BID Oxcarbazepine 300 mg [Trileptal 300 MG Tablet] 300 mg PO BID Metformin HCl 500 mg [Glucophage 500 MG] 500 mg PO DAILY Lisinopril 10 mg [Zestril 10 MG] 10 mg PO DAILY Calcium Carbonate/Vitamin D3 [Caltrate 600 + D Soft Chew Tab] 1 each PO DAILY Cholecalciferol (Vitamin D3) [Vitamin D3] 5,000 unit PO DAILY Pnv 112/Iron/Folic/Om3/Dha/Epa [Vitafol Gummies] 1 each PO DAILY Atorvastatin Calcium [Lipitor] 20 mg PO DAILY Furosemide [Lasix] 20 mg PO DAILY Alfuzosin HCl [Alfuzosin HCl ER] 10 mg PO DAILY Discontinued Hydrocodone/Acetaminophen [Hydrocodone-Acetamin 7.5-325] 1 each PO TID Buprenorphine HCl [Belbuca] 450 mcg PO BID Oxycodone HCl/Acetaminophen [Oxycodone-Acetaminophn 7.5-325] 1 each PO QID PRN PRN Reason: Pain Instructions: Arthrodesis of Foot and Ankle, Open Surgery Additional Instructions: -YOU ARE TO REMAIN NON WEIGHT BEARING TO RIGHT LOWER EXTREMITY -OKAY TO TOUCHDOWN FRAME TO GROUND -ELEVATE EXTREMITY -ANTIEMBOLI STOCKING TO LEFT LEG -LEAVE DRESSING CD&I - DR. MOORE SENT IN ORDER FOR PAIN MEDS TO PHARMACY- TAKE INSTRUCTED - PER DR. HEARN'S OFFICE- TAKE ONLY PAIN MEDICATIONS PRESCRIBED PER DR. MOORE. BRING ALL PAIN MEDS TO YOUR FOLLOW UP APPOINTMENT WITH DR HEARN FOR A PILL COUNT Follow up with: OSCAR SNOW DPM [ACTIVE STAFF] - 10/13/21 10:00 am MARTHA ORELLANA NP [NON-STAFF PHY W/O PRIVILEGES] - 10/12/21 10:00 am Forms: Discharge Instructions
--- NOTE | 2021-10-06 13:46 | PCM.DS ---
Discharge Summary Date of Admission: 10/01/21 07:56 Date of Discharge: 10/06/21 Admitting Physician: CATERINA BOWMAN DO Consults: Consults on Case 09/30/21 15:50 Consult Physician ROUTINE Primary Care Provider: NO FAMILY DOCTOR Allergies Allergies No Known Drug Allergies Allergy (Unverified 09/21/21 14:40) Hospital Summary - Hospital Course Hospital Course: Patient is a 56 yr old male patient admitted for Podiatric surgery of right ankle due to failed right ankle arthroplasty. Patient has not had any medical set backs during his stay for Podiatric surgery. See Dr Newton op and hospital notes. PMHx includes HTN,He well controlled diabetic on diet and oral meds.(see H&P) Dr Moreno follows for chronic pain. Has had multiple injuries over the years riding [place]. PCP is SHEN Green. Patient will be following up with each of his providers in post op plus Home Health care has been arranged. - Vitals & Intake/Output Vital Signs: Vital Signs Temperature 97.1 F 10/06/21 12:04 Pulse Rate 71 10/06/21 12:04 Respiratory Rate 16 10/06/21 12:04 Blood Pressure 139/78 10/06/21 12:04 O2 Sat by Pulse Oximetry 96 10/06/21 12:04 Intake & Output: Intake & Output 10/04/21 10/05/21 10/06/21 10/07/21 11:59 11:59 11:59 11:59 Intake Total 3180 5148 4835 240 Output Total 5050 4550 5700 350 Balance -1870 598 -865 -110 Weight 140 kg - Lab Result Diagrams: 10/04/21 04:15 10/04/21 04:15 Lab Results-Last 24 Hrs: Lab Results-Last 24 Hours 10/05/21 10/06/21 10/06/21 Range/Units 21:15 04:15 07:04 PT 11.4 (9.4-12.5) SECONDS INR 0.97 (0.8-3.0) APTT 30.3 (25.1-36.5) SECONDS POC Glucometer 94 149 H (74 to 106) mg/dL 10/06/21 Range/Units 11:40 PT (9.4-12.5) SECONDS INR (0.8-3.0) APTT (25.1-36.5) SECONDS POC Glucometer 97 (74 to 106) mg/dL Micro Results-Entire Visit: Accuchecks Date 10/06/21 Time 12:06 - Procedures and Test Procedures and Tests throughout Hospitalization: Therapy Orders & Screens 09/30/21 08:09 EKG STAT Comment: Diagnosis: htn, DM II 09/30/21 15:51 PT Eval & Treat ( Order) ROUTINE Reason for Eval:: POST-OP CARE Diagnosis: right ankle and foot pain 09/30/21 17:37 OT Screen per Nursing Assess ONCE Comment: Protocol Order Physician Instructions: Greater than 3 points order OT Admission Screening Reason For Exam: Triggered on Admission Diagnosis: Surgery to R ankle Open Wound/Cellutlitis/Pressure Ulcers: Yes Acute Fx/ORIF/Change in wt bearing status: Yes Severe MUSCULOSKELETAL pain: Yes ADL Dysfunction: Yes Acute CVA w/Hemiparesis/Hemiplegia: No Decreased Functional Mobility/Strength: Yes Sprain/Strain: No Acute Post-op Mobility Dysfunction: Yes Total Points: 22 09/30/21 19:00 Incentive Spirometry TID Comment: Diagnosis: Surgery to R ankle 10/03/21 11:06 OT Eval and Treat (MD Order) ONCE Comment: Consulting Provider: Physician Instructions: Reason For Exam: Diagnosis: Surgery to R ankle Discharge Exam General Appearance: no apparent distress Neurologic Exam: alert, oriented x 3, cooperative (a little anxious to get home.) Neck Exam: normal inspection Respiratory Exam: normal breath sounds Cardiovascular Exam: regular rate/rhythm Gastrointestinal/Abdomen Exam: soft Extremity Exam: other (right LE external fixator in place toes -able to move all and are warm and dry.) Wound Assessment: Skin/Wound Assessment Wound/Incision Assessment Start: 09/30/21 17:37 Text: Status: Active Freq: Q6H Protocol: Document 10/06/21 08:00 MW (Rec: 10/06/21 08:23 MW [id number]) Wound/Incision Assessment Right Ankle Wound Assessment Shift Assessment Wound Type Incision Wound Stage Non Pressure Wound Dressing Status Dry & Intact Drainage Amount None Drainage Odor None/Absent Surrounding Tissue [place] Comment External fixator to right ankle intact, dressings CDI. CTMPS within normal limits. Wound Photo Photo Taken No Final Diagnosis/Problem List - Final Discharge Diagnosis/Problem (1) Varus deformity, not elsewhere classified, right ankle Current Visit: Yes Status: Chronic Code(s): M21.171 - VARUS DEFORMITY, NOT ELSEWHERE CLASSIFIED, RIGHT ANKLE (2) Controlled diabetes mellitus Current Visit: Yes Status: Chronic Code(s): E11.9 - TYPE 2 DIABETES MELLITUS WITHOUT COMPLICATIONS (3) 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 Code(s): T84.019A - BROKEN INTERNAL JOINT PROSTHESIS, UNSP SITE, INIT ENCNTR (4) HTN (hypertension) Current Visit: Yes Status: Chronic Code(s): I10 - ESSENTIAL (PRIMARY) HYPERTENSION (5) Hypomagnesemia Current Visit: Yes Status: Acute Assessment & Plan: explained to patient and Rx sent to [facility] for magnesium supplement Code(s): E83.42 - HYPOMAGNESEMIA - Discharge Disposition: HOME HEALTH SERVICE Condition: Stable Prescriptions: New Ciprofloxacin [Cipro 500 MG] 500 mg PO DAILY #10 tablet clindamycin HCL [Clindamycin HCl] 150 mg PO BID 10 Days #20 cap Aspirin EC 325 mg [Ecotrin 325 MG] 325 mg PO DAILY #30 Oxycodone / APAP 10/325 mg [Oxycodone-Acetaminophen 10-325] 1 tab PO Q4H PRN PRN tablet PRN Reason: Pain Magnesium Oxide 400 mg PO DAILY #30 tablet Oxycodone / APAP 10/325 mg [Oxycodone-Acetaminophen 10-325] 1 tab PO Q4H PRN PRN tablet PRN Reason: Pain Continue Vit B/Min/Saw [place]/Pygeum [Urinozinc Prost Complx Cls Cp] 1 each PO BID Tumeric/Ging/[place]/Oreg/Capryl [Candicidal Capsule] 1 each PO DAILY Lidocaine HCl 2% Jelly [Xylocaine 2% JELLY] 5 ml MM DAILY PRN PRN PRN Reason: Pain Finasteride 5 mg [Proscar 5 MG] 5 mg PO DAILY Celecoxib 100 mg [celeBREX 100 MG] 200 mg PO DAILY Calcium Carbonate/Vitamin D3 [Sv Calc 600 mg-D3 12.5MCG Sfgl] 1 each PO DAILY Buspirone HCl 5 mg [Buspar 5 mg] 10 mg PO HS Pregabalin 200 mg PO BID Oxcarbazepine 300 mg [Trileptal 300 MG Tablet] 300 mg PO BID Metformin HCl 500 mg [Glucophage 500 MG] 500 mg PO DAILY Lisinopril 10 mg [Zestril 10 MG] 10 mg PO DAILY Calcium Carbonate/Vitamin D3 [Caltrate 600 + D Soft Chew Tab] 1 each PO DAILY Cholecalciferol (Vitamin D3) [Vitamin D3] 5,000 unit PO DAILY Pnv 112/Iron/Folic/Om3/Dha/Epa [Vitafol Gummies] 1 each PO DAILY Atorvastatin Calcium [Lipitor] 20 mg PO DAILY Furosemide [Lasix] 20 mg PO DAILY Alfuzosin HCl [Alfuzosin HCl ER] 10 mg PO DAILY Discontinued Aspirin 81 gm Chew [Baby Aspirin 81 mg Chew] 81 mg PO DAILY Hydrocodone/Acetaminophen [Hydrocodone-Acetamin 7.5-325] 1 each PO TID Buprenorphine HCl [Belbuca] 450 mcg PO BID Oxycodone HCl/Acetaminophen [Oxycodone-Acetaminophn 7.5-325] 1 each PO QID PRN PRN Reason: Pain Outpatient Orders: MAGNESIUM Time Frame: 2 Weeks, Facility: [facility], Location: LABORATORY Instructions: Arthrodesis of Foot and Ankle, Open Surgery Additional Instructions: -YOU ARE TO REMAIN NON WEIGHT BEARING TO RIGHT LOWER EXTREMITY -OKAY TO TOUCHDOWN FRAME TO GROUND -ELEVATE EXTREMITY -ANTIEMBOLI STOCKING TO LEFT LEG -LEAVE DRESSING CD&I - DR. MOORE SENT IN ORDER FOR PAIN MEDS TO PHARMACY- TAKE INSTRUCTED - PER DR. HEARN'S OFFICE- TAKE ONLY PAIN MEDICATIONS PRESCRIBED PER DR. MOORE. BRING ALL PAIN MEDS TO YOUR FOLLOW UP APPOINTMENT WITH DR HEARN FOR A PILL COUNT -[facility] HAS BEEN ARRANGED. THEY WILL CALL YOU TO ARRANGE AN APPOINTMENT TO COME SEE YOU. THEIR PHONE NUMBER IS [phone] Follow up with: OSCAR SNOW DPM [ACTIVE STAFF] - 10/13/21 10:00 am MARTHA GREEN NP [NON-STAFF PHY W/O PRIVILEGES] - 10/12/21 10:00 am Forms: Discharge Instructions
[2021-10-06] MEDS ORDERED: ENOXAPARIN SODIUM SQ SCH (14:00)
== END 2021-10-06 15:17 | disposition home health service (06) | DRG 478 ==
LOC: MED SURG 06:41 → EDSTATUS 14:14 → OBSVTOIN 10-01 07:56
PROVIDERS: ADMIT Family Medicine; ATTEND Podiatrist Foot & Ankle Surgery
PROC: 0SPF0JZ Removal of Synthetic Substitute from Right Ankle Joint, Open Approach (ICD-10-PCS; principal; 2021-09-30)
PROC: 0SBF0ZZ Excision of Right Ankle Joint, Open Approach (ICD-10-PCS; 2021-09-30)
PROC: 0SBF0ZZ Excision of Right Ankle Joint, Open Approach (ICD-10-PCS; 2021-09-30)
PROC: 0QBL3ZX Excision of Right Tarsal, Percutaneous Approach, Diagnostic (ICD-10-PCS; 2021-09-30)
PROC: 0QBL3ZX Excision of Right Tarsal, Percutaneous Approach, Diagnostic (ICD-10-PCS; 2021-09-30)
DX: M21.171 Varus deformity, not elsewhere classified, right ankle (principal); M86.9 Osteomyelitis, unspecified; T84.018A Broken internal joint prosthesis, other site, initial encounter; M21.541 Acquired clubfoot, right foot; M25.571 Pain in right ankle and joints of right foot; E11.42 Type 2 diabetes mellitus with diabetic polyneuropathy; I10 Essential (primary) hypertension; E83.42 Hypomagnesemia; Z79.899 Other long term (current) drug therapy; Z96.698 Presence of other orthopedic joint implants; Z20.828 Contact with and (suspected) exposure to other viral communicable diseases
CPT/HCPCS: 0241U; 11981; 20220; 20240; 20692; 27704; 28005; 36415; 64450; 71046; 73620; 73700; 76000; 76937; 76942; 80048; 80202; 82565; 82947; 83735; 85025; 85027; 85610; 85730; 87070; 87075; 93005; 94762; 99024; C1713; G0378; J0690; J1100; J1170; J1650; J1885; J2250; J2270; J2405; J2704; J3010; J3370; 97110-GP; A9270-GY

== ENCOUNTER 2021-11-05 07:06 | Emergency (ER) | payer OTHER ==
[2021-11-05] MEDS ORDERED: Sodium Chloride 0.9% 1000 ML 1,000 ML ONE (08:38)
[2021-11-05] MEDS ORDERED: Hydromorphone 1 mg/ml Injection ONE ×2 (08:38→08:39)
[2021-11-05] MEDS ORDERED: Zofran 4 MG/2 ML VIAL ONE (08:39)
--- NOTE | 2021-11-05 09:05 | ERPHSYRPT ---
- History of Present Illness Time Seen by Provider: 11/05/21 07:11 Source: patient Exam Limitations: no limitations Patient Subjective Stated Complaint: Pt has a foot immobilizer device due to surgery on his right foot and he states that it has shifted and is causing a lot of pain Triage Nursing Assessment: Pt was brought to the ER by his mother, yuniel montemayor, rates pain as 8/10, pt has an external fixator on his right foot and Dr. Chawla is coming to examine due to he was the surgeon, pt states that the fixator has shifted and is causing pain, no other issues at this time Physician History: 56 years old with history of right total ankle implant removal with bone biopsy and multipoint external fixator placement almost [address] Chawla presented in the ER with some displacement of fixator and having increased swelling around calf with pain for the last couple of days. No fever or chills reported. No discharge from fixator site insertions but does have tingling sensation in the lower extremity off and on. Patient is here to have it adjusted. Allergies/Adverse Reactions: No Known Drug Allergies Allergy (Verified 11/05/21 07:35) Home Medications: Buspirone HCl 5 mg [Buspar 5 mg] 10 mg PO HS 09/21/21 [History] Calcium Carbonate/Vitamin D3 [Caltrate 600 + D Soft Chew Tab] 1 each PO DAILY 09/21/21 [History] Calcium Carbonate/Vitamin D3 [Sv Calc 600 mg-D3 12.5MCG Sfgl] 1 each PO DAILY 09/21/21 [History] Celecoxib 100 mg [celeBREX 100 MG] 200 mg PO DAILY 09/21/21 [History] Cholecalciferol (Vitamin D3) [Vitamin D3] 5,000 unit PO DAILY 09/21/21 [History] Finasteride 5 mg [Proscar 5 MG] 5 mg PO DAILY 09/21/21 [History] Lidocaine HCl 2% Jelly [Xylocaine 2% JELLY] 5 ml MM DAILY PRN PRN 09/21/21 [History] Lisinopril 10 mg [Zestril 10 MG] 10 mg PO DAILY 09/21/21 [History] Metformin HCl 500 mg [Glucophage 500 MG] 500 mg PO DAILY 09/21/21 [History] Oxcarbazepine 300 mg [Trileptal 300 MG Tablet] 300 mg PO BID 09/21/21 [History] Pregabalin 200 mg PO BID 09/21/21 [History] Tumeric/Ging/[place]/Oreg/Capryl [Candicidal Capsule] 1 each PO DAILY 09/21/21 [History] Vit B/Min/Saw [place]/Pygeum [Urinozinc Prost Complx [facility] Cp] 1 each PO BID 09/21/21 [History] Alfuzosin HCl [Alfuzosin HCl ER] 10 mg PO DAILY 09/30/21 [History] Atorvastatin Calcium [Lipitor] 20 mg PO DAILY 09/30/21 [History] Furosemide [Lasix] 20 mg PO DAILY 09/30/21 [History] Pnv 112/Iron/Folic/Om3/Dha/Epa [Vitafol Gummies] 1 each PO DAILY 09/30/21 [History] Travel Risk - International Travel Have you traveled outside of the country in past 3 weeks: No - Coronavirus Screening Are you exhibiting any of the following symptoms?: No - Vaccine Status Have you recieved a Covid-19 vaccination: Yes Senior Clinician: Moderna - Vaccination Dates Date of 2cond Vaccination (if applicable): 05/31 - Review of Systems Constitutional: No Symptoms Ears, Nose, & Throat: No Symptoms Respiratory: No Symptoms Cardiac: No Symptoms Abdominal/Gastrointestinal: No Symptoms Genitourinary Symptoms: No Symptoms Musculoskeletal: Arthralgias Neurological: No Symptoms Endocrine: No Symptoms Hematologic/Lymphatic: No Symptoms - Past Medical History Pertinent Past Medical History: Yes Neurological History: Peripheral Neuropathy Cardiac History: Hypertension Endocrine Medical History: Diabetes Type II Musculoskeletal History: Arthritis Psycho-Social History: Anxiety Male Reproductive Disorders: Prostate Problems - Past Surgical History Past Surgical History: Yes Neuro Surgical History: No Pertinent History Cardiac: No Pertinent History Respiratory: No Pertinent History Gastrointestinal: No Pertinent History Genitourinary: No Pertinent History Musculoskeletal: Joint Replacement Male Surgical History: No Pertinent History Other Surgical History: total ankle Jul 2018, total knee December 2020. - Social History Smoking Status: Never smoker Exposure to second hand smoke: No Drug Use: none Patient Lives Alone: No - Nursing Vital Signs Nursing Vital Signs: Initial Vital Signs Temperature 98.9 F 11/05/21 07:24 Pulse Rate 71 11/05/21 07:24 Blood Pressure 121/75 11/05/21 07:24 O2 Sat by Pulse Oximetry 97 11/05/21 07:24 Pain Scale Pain Intensity 2 - Physical Exam General Appearance: no apparent distress, alert Eyes, Ears, Nose, Throat Exam: normal ENT inspection Neck Exam: normal inspection, full range of motion Cardiovascular/Respiratory Exam: normal breath sounds, regular rate/rhythm Back Exam: normal inspection, normal range of motion Hips Exam: bilateral: non-tender, normal inspection, normal range of motion, no evidence of injury Legs Exam: right leg: soft tissue tenderness (External fixator right fo ot/ankle/leg in place with decreased space between fixator and calf with some swelling.), swelling Foot Exam: right foot: soft tissue tenderness, swelling (Intact distal neuro vascular) Neuro/Tendon Exam: normal motor functions Mental Status Exam: alert, oriented x 3, cooperative Skin Exam: normal color SpO2 Interpretation: normal SpO2: 97 O2 Delivery: Room Air Procedures - Procedural Sedation Indication: other (Right lower extremity external fixator adjustment) Preparation: consent signed, capnographry, iv access, previous anesthia/sedation without complications, constant attendance, phototypesetting equipment monitor, oxygen, procedure explained, pulse oximeter, suction Sedation Parenteral: Etomidate, Dilaudid Response during procedure: light sedation Post-Procedure Response: return to baseline mental status Progress: Tolerated procedure very well Ordered Tests: Active Orders 24 hr Category Date Time Status House Regular Diet Diet 11/05/21 Lunch Completed Standby ROUTINE RT 11/05/21 09:10 Completed Medication Summary Discontinued Medications Generic Name Dose Route Start Last Admin Trade Name Laila PRN Reason Stop Dose Admin Hydromorphone HCl Confirm 11/05/21 08:38 Hydromorphone 1 Mg/1ml Inj 1 Mg/Ml Syringe Administered 11/05/21 08:39 Dose 1 mg .ROUTE .STK-MED ONE Hydromorphone HCl Confirm 11/05/21 08:39 Hydromorphone 1 Mg/1ml Inj 1 Mg/Ml Syringe Administered 11/05/21 08:40 Dose 1 mg .ROUTE .STK-MED ONE Sodium Chloride Confirm 11/05/21 08:38 Sodium Chloride 0.9% 1000 Ml Administered 11/05/21 08:39 Dose 1,000 mls @ ud .ROUTE .STK-MED ONE Ondansetron HCl Confirm 11/05/21 08:39 Ondansetron Hcl 4 Mg/2 Ml Vial Administered 11/05/21 08:40 Dose 4 mg .ROUTE .STK-MED ONE - Progress Progress: improved Progress Note: 11/05/21 09:04 Dr. Chawla has been consulted who has seen patient and I provided conscious sedation and he adjusted the external fixator. Patient is observed in the ER post conscious sedation and tolerated oral very well and is almost back to his normal. Given instructions for conscious sedation and recommended follow-up with Dr. Chawla as per his recommendations. Counseled pt/family regarding: diagnosis, need for follow-up - Departure Departure Disposition: Home Clinical Impression: Loosening of external fixator pin Condition: Stable Critical Care Time: No Referrals: MARTHA ORELLANA FIXTURE RELAMPER [Primary Care Provider] - Follow Up with PCP/3 days Instructions: Moderate Sedation in Adults (DC) Additional Instructions: Take pain medications which you have at home as needed. Follow conscious sedation instructions and return to ER for any worsening. Keep appointment with Dr. Chawla as recommended.
--- NOTE | 2021-11-05 09:36 | PCM.CONS ---
Podiatry HPI - Consult Date of Consultation Date: 11/05/21 Reason for Consult: Swelling of operative extremity. complication of external fixation Consulting Provider: OSCAR SNOW DPM - [facility] History of Present Illness: Mr. Olivares is a very pleasant 56-year-old male who presents to the emergency department with complaints of swelling and increased pain over the course of the last 5 days to the right lower extremity. Patient had a uneventful postoperative course status post extraction of total ankle implant application of antibiotic spacer bone biopsies and application of multiplanar external fixation on October 01, 2021. Patient is awaiting second stage of procedure set to occur on November 18, 2021 with tibio talocalcaneal arthrodesis with application of a 3D custom implant and removal of external fixator on that date. Patient indicates over the last several days he has noticed some increasing swelling to the operative extremity. Prior to surgical intervention patient was seen for preop and does have a history of venous insufficiency and swelling to the leg that we attempted to optimize prior to initial surgical intervention. At this time patient indicates he has been elevating and taking his Lasix as well as increasing the recommended dose based on last week's postop visit. Nothing seems to be alleviating the pain that he is experiencing. He also indicates that he feels as though the frame has shifted to some degree. He currently denies any constitutional symptoms. He denies any other pedal complaints at this time Medications & Allergies Home Medications: Home Medication List Buspirone HCl 5 mg [Buspar 5 mg] 10 mg PO HS 09/21/21 [History Confirmed 11/05/21] Calcium Carbonate/Vitamin D3 [Caltrate 600 + D Soft Chew Tab] 1 each PO DAILY 09/21/21 [History Confirmed 11/05/21] Calcium Carbonate/Vitamin D3 [Sv Calc 600 mg-D3 12.5MCG Sfgl] 1 each PO DAILY 09/21/21 [History Confirmed 11/05/21] Celecoxib 100 mg [celeBREX 100 MG] 200 mg PO DAILY 09/21/21 [History Confirmed 11/05/21] Cholecalciferol (Vitamin D3) [Vitamin D3] 5,000 unit PO DAILY 09/21/21 [History Confirmed 11/05/21] Finasteride 5 mg [Proscar 5 MG] 5 mg PO DAILY 09/21/21 [History Confirmed 11/05/21] Lidocaine HCl 2% Jelly [Xylocaine 2% JELLY] 5 ml MM DAILY PRN PRN 09/21/21 [History Confirmed 11/05/21] Lisinopril 10 mg [Zestril 10 MG] 10 mg PO DAILY 09/21/21 [History Confirmed 11/05/21] Metformin HCl 500 mg [Glucophage 500 MG] 500 mg PO DAILY 09/21/21 [History Confirmed 11/05/21] Oxcarbazepine 300 mg [Trileptal 300 MG Tablet] 300 mg PO BID 09/21/21 [History Confirmed 11/05/21] Pregabalin 200 mg PO BID 09/21/21 [History Confirmed 11/05/21] Tumeric/Ging/[place]/Oreg/Capryl [Candicidal Capsule] 1 each PO DAILY 09/21/21 [History Confirmed 11/05/21] Vit B/Min/Saw [place]/Pyge[place] [Urinozinc Prost Complx [facility] Cp] 1 each PO BID 09/21/21 [History Confirmed 11/05/21] Alfuzosin HCl [Alfuzosin HCl ER] 10 mg PO DAILY 09/30/21 [History Confirmed 11/05/21] Atorvastatin Calcium [Lipitor] 20 mg PO DAILY 09/30/21 [History Confirmed 11/05/21] Furosemide [Lasix] 20 mg PO DAILY 09/30/21 [History Confirmed 11/05/21] Pnv 112/Iron/Folic/Om3/Dha/Epa [Vitafol Gummies] 1 each PO DAILY 09/30/21 [History Confirmed 11/05/21] Aspirin EC 325 mg [Ecotrin 325 MG] 325 mg PO DAILY #30 10/06/21 [Rx Confirmed 11/05/21] Magnesium Oxide 400 mg PO DAILY #30 tablet 10/06/21 [Rx Confirmed 11/05/21] Oxycodone / APAP 10/325 mg [Oxycodone-Acetaminophen 10-325] 1 tab PO Q4H PRN PRN tablet 10/06/21 [Rx Confirmed 11/05/21] clindamycin HCL [Clindamycin HCl] 150 mg PO BID 10 Days #20 cap 10/06/21 [Rx Confirmed 11/05/21] Allergies/Adverse Reactions: Allergies Allergy/AdvReac Type Severity Reaction Status Date / Time No Known Drug Allergies Allergy Verified 11/05/21 07:35 - Past Medical History Past Medical History: Yes Neurological History: Peripheral Neuropathy Cardiac History: Hypertension Endocrine Medical History: Diabetes Type II Musculoskelatal History: Arthritis Pyscho-Social History: Anxiety Male Reproductive Disorders: Prostate Problems - Past Surgical History Past Surgical History: Yes Neuro Surgical History: No Pertinent History Cardiac History: No Pertinent History Respiratory Surgery: No Pertinent History GI Surgical History: No Pertinent History Genitourinary Surgical Hx: No Pertinent History Musculskeletal Surgical Hx: Joint Replacement Male Surgical History: No Pertinent History Other Surgical History: total ankle Jul 2018, total knee December 2020. - Social History Smoking Status: Never smoker Exposure to second hand smoke: No Alcohol: Rarely Drug Use: none Physical Exam - Narrative Narrative Physical Exam: Podiatry Physical Exam Vascular: Status intact DP and PT pulses are palpable. No cellulitis lymphangitis or lymphadenopathy on palpation of the popliteal or the inguinal lymph nodes. Capillary refill time is less than 3 seconds. Dermatological: External fixator in place with minimal shift at calcaneal pin sites medially and lateral shift at the proximal tibial sites. Significant swelling however with pitting edema frame is not making significant contact with the skin at this time. Musculoskeletal: Wiggles toes no pain with passive dorsiflexion of digits. Rectus position of foot with foot orthogonal relative to the longitudinal access of the leg. Neurological: Equal and symmetrical sensation to the bilateral lower extremity. Assessment/Plan (1) Venous insufficiency of both lower extremities Current Visit: Yes Status: Acute Code(s): I87.2 - VENOUS INSUFFICIENCY (CHRONIC) (PERIPHERAL) (2) Localized edema due to fluid overload Current Visit: Yes Status: Acute Code(s): E87.70 - FLUID OVERLOAD, UNSPECIFIED (3) Loosening of external fixator pin Current Visit: Yes Status: Acute Assessment & Plan: Patient examination evaluation. Clinically frame has shifted laterally at the proximal aspect and medially at the calcaneus. Patient opted for bedside adjustment of multiplanar external fixator. Conscious sedation was provided by Dr. Larsen. Pin sites were prepped with iodine prior to adjustment. At this time external fixator was adjusted manually sliding the foot laterally on the calcaneal pins and medially at the proximal tibial site. Following this there was improvement of alignment with minimal concerns for impingement. Patient handled the anesthesia as well as the procedure without complication. At this time a dressing consisting of Xeroform 4 x 4 gauze Unna boot and Coban was applied to the leg to reduce swelling and decrease pain and irritation with chronic venous insufficiency in conjunction with the external fixator. Patient indicated an improvement immediately following the procedure. Patient encouraged to continue diuretic medications and elevation of the extremity as originally prescribed Will proceed with surgical intervention on November 18 for definitive surgical intervention. Okay for discharge from my standpoint when meets emergency room criteria. Return for reappointment on November 16, 2021. Code(s): T84.89XA - [facility] COMP OF INTERNAL ORTHOPEDIC PROSTH KRISTINA/BELKIS MCGRAW (4) Ankle varus, acquired Current Visit: No Status: Acute Code(s): M21.549 - ACQUIRED CLUBFOOT, UNSPECIFIED FOOT (5) Diabetic peripheral neuropathy associated with type 2 diabetes mellitus Current Visit: No Status: Acute Code(s): E11.42 - TYPE 2 DIABETES MELLITUS WITH DIABETIC POLYNEUROPATHY (6) Controlled diabetes mellitus Current Visit: No Status: Chronic Qualifiers: Diabetes mellitus type: type 2 Diabetes mellitus half-way insulin use: without half-way use Code(s): E11.9 - TYPE 2 DIABETES MELLITUS WITHOUT COMPLICATIONS (7) HTN (hypertension) Current Visit: No Status: Chronic Code(s): I10 - ESSENTIAL (PRIMARY) HYPERTENSION
[2021-11-05 09:52] VITALS: O2SAT 97
[2021-11-05 10:33] VITALS: BP 126/72; PULSE 70
== END 2021-11-05 10:51 | disposition home or self-care (01) ==
LOC: ED 07:06
DX: T85.618A Breakdown (mechanical) of other specified internal prosthetic devices, implants and grafts, initial encounter (principal); M79.604 Pain in right leg; I10 Essential (primary) hypertension; E11.42 Type 2 diabetes mellitus with diabetic polyneuropathy; Z79.899 Other long term (current) drug therapy
CPT/HCPCS: 94799; 96374; 96375; 99283; 99291; J1170; J2405

== ENCOUNTER 2021-11-18 09:24 | Observation (INO) | payer OTHER ==
[~2021-11-18 09:24] MED LIST: BUPIVACAINE 0.5% VIAL IJ ONE; Lactated Ringers 1,000 ML IV ONE; XYLOCAINE 1% HCL 20 ML MDV ONE
[2021-11-18] MEDS: Lactated Ringers 1,000 ML IV SCH ×2 (10:10→23:08)
[2021-11-18] MEDS ORDERED: CEFAZOLIN 2 GM-D5W BAG** 2 GM/50 ML ML IV SCH (10:30)
[2021-11-18 10:32] LABS: Absolute Neutrophil Ct (ANC) 3.37 x10^3/uL (1.4-6.9); Basophil (Absolute #) 0.03 x10^3/uL (0-0.4); Eosinophil % 1.2 % (0.00-5.0); Eosinophil (Absolute #) 0.07 x10^3/uL (0-0.5); Hematocrit 34.5 % (42-50); Hemoglobin 11.1 g/dL (12.5-18.0); Lymphocyte (Absolute #) 1.56 x10^3/uL (1.0-4.6); Lymphocytes % 27.5 % (24.0-44.0); Mean Cell Volume 90.3 fL (78-100); Mean Corpuscular Hemoglobin 29.1 pg (26-32); Mean Corpuscular Hgb Concent. 32.2 g/dL (32-36); Mean Platelet Volume 9.5 fL (7.5-11.0); Monocyte (Absolute #) 0.62 x10^3/uL (0.0-1.3); Monocytes % 10.9 % (0.0-12.0); Neutrophil % 59.5 % (36.0-66.0); Platelet Count 350 x10^3/uL (150-450); Red Blood Count 3.82 x10^6/uL (4.1-5.6); Red Cell Distribution Width 12.9 % (11.5-14.0); White Blood Count 5.7 x10^3/uL (4.0-10.5)
[2021-11-18 10:45] LABS: ALKALINE PHOSPHATASE 66 U/L (38-126); ANION GAP 9.6 MEQ/L (5-15); BLOOD UREA NITROGEN 23 mg/dL (9-20); CHLORIDE 97 mmol/L (98-107); Calcium 9.2 mg/dL (8.4-10.2); Carbon Dioxide 32 mmol/L (22-30); Creatinine 1 0.93 mg/dL (0.66-1.25); EST GLOMERULAR FILTRATION RATE > 60.0 ML/MIN; Glucose 99 mg/dL (74-106); Potassium 4.5 mmol/L (3.5-5.1); SGOT/AST 43 U/L (17-59); SGPT/ALT 19 U/L (0-50); SODIUM 135 mmol/L (137-145); Total Protein 7.4 g/dL (6.3-8.2)
[2021-11-18 10:47] LABS: INFLUENZA A NEGATIVE (NEGATIVE); INFLUENZA B NEGATIVE (NEGATIVE); RESPIRATORY SYNCTIAL VIRUS NEGATIVE (Negative); SARS-CoV-2 Xpert Express NEGATIVE (NEGATIVE)
[2021-11-18] MEDS: Versed 2 MG/2 ML Injection IV PRN ×2 (11:50→12:08)
[2021-11-18] MEDS ORDERED: TORAdol 30 mg Injection ONE (12:50)
[2021-11-18] MEDS ORDERED: BRIDION 200MG/2ML IV ONE (12:50)
[2021-11-18] MEDS ORDERED: Xylocaine-Mpf 2% 5 Ml Vial ONE ×2 (12:50→17:22)
[2021-11-18] MEDS ORDERED: Zofran 4 MG/2 ML VIAL ONE (12:50)
[2021-11-18] MEDS ORDERED: Zemuron 100 MG/10 ML ONE (12:50)
[2021-11-18] MEDS ORDERED: DIPRIVAN 200 MG/20 ML IV ONE ×2 (12:50→17:26)
[2021-11-18] MEDS ORDERED: Decadron 4 MG INJ ONE ×2 (12:50→17:22)
[2021-11-18] MEDS ORDERED: SUBLIMAZE 250 MCG/5 ML ONE (12:51)
[2021-11-18 14:42] LABS: Bacteria RARE /HPF (NEGATIVE); RBC 0-2 /HPF (0-2)
[2021-11-18 14:43] LABS: Appearance CLEAR (CLEAR); Bilirubin NEGATIVE (NEGATIVE); Glucose NEGATIVE (NEGATIVE); Ketones NEGATIVE (NEGATIVE); Specific Gravity 1.015 (1.005-1.025)
[2021-11-18 14:44] LABS: Nitrite NEGATIVE (NEGATIVE); Protein,Urine Dip NEGATIVE (Negative); RBC TRACE-INTACT Ery/ul (0-5); Urobilinogen 0.2 mg/dL (0-1)
[2021-11-18 14:45] LABS: Dipstick done @ ? MAIN LAB
[2021-11-18] MEDS ORDERED: Ketamine HCl 50 MG/ML ONE (16:05)
[2021-11-18] MEDS ORDERED: APRESOLINE 20 MG/ML INJ ONE (16:16)
[2021-11-18] MEDS ORDERED: Marcaine 0.5%/Epinephrine 10 ML ONE (17:22)
[2021-11-18] MEDS ORDERED: DEMEROL 50 MG ONE (18:55)
[2021-11-18 21:26] LABS: Hematocrit 35.4 % (42-50); Hemoglobin 11.2 g/dL (12.5-18.0)
[2021-11-18] MEDS: BUSPAR 5 MG PO SCH (21:52)
[2021-11-18] MEDS: HYDROCODONE-ACETAMIN 10-325 MG PO PRN (21:52)
[2021-11-18] MEDS: Vibramycin 100 MG PO SCH (21:53)
[2021-11-18] MEDS: LYRICA 100MG PO SCH (21:53)
--- NOTE | 2021-11-18 22:19 | XRAY ---
Indication: Removal external fixator. Talotibial calcaneal arthrodesis with custom implant. Intraoperative fluoroscopy provided for 5 minutes 55 seconds. 30 digital spot images submitted for interpretation ultimately demonstrates total ankle arthroplasty with intramedullary rosanna, proximal/distal transverse screws, and prosthesis. Correlate with intraoperative findings/reported.
[2021-11-18] MEDS: Hydromorphone 1 mg/ml Injection IV PRN (22:59)
[2021-11-18] MEDS: MOTRIN 600 MG PO PRN (23:00)
[2021-11-18] MEDS: ELIQUIS 2.5 MG TABLET PO SCH (23:09)
[2021-11-18] MEDS: Trileptal 300 MG Tablet PO SCH (23:11)
[2021-11-19] MEDS: Hydromorphone 1 mg/ml Injection IV PRN ×5 (03:55→22:29)
[2021-11-19] MEDS: HYDROCODONE-ACETAMIN 10-325 MG PO PRN ×4 (05:48→19:56)
[2021-11-19 06:54] LABS: Hematocrit 31.3 % (42-50); Mean Cell Volume 90.7 fL (78-100); Mean Corpuscular Hgb Concent. 31.9 g/dL (32-36); Mean Platelet Volume 9.7 fL (7.5-11.0); Platelet Count 359 x10^3/uL (150-450); Red Blood Count 3.45 x10^6/uL (4.1-5.6); Red Cell Distribution Width 13.1 % (11.5-14.0)
[2021-11-19] MEDS: Glucophage 500 MG PO SCH (08:24)
[2021-11-19] MEDS: MOTRIN 600 MG PO PRN (08:27)
--- NOTE | 2021-11-19 08:32 | PCM.CONS ---
Podiatry HPI - Consult Date of Consultation Date: 11/19/21 Reason for Consult: surgical follow up Consulting Provider: OSCAR SNOW DPM - [facility] History of Present Illness: Tin is a very pleasant 56-year-old man who is seen at bedside this a.m. status post removal of external fixator, removal of antibiotic spacer and tibial talocalcaneal arthrodesis with custom implant. Patient is postop day #1. Last night OR nurse called with some concerns of drainage to right heel. This morning no strikethrough on primary dressing however taking off the reinforcement there is strikethrough on 1 of 4 ABDs. Patient is asymptomatic. He denies any constitutional symptoms of infection. He denies any lethargy. He indicates that he slept approximately 6 hours last night. Patient was able to void however unable to defecate. Pain relatively controlled with block at this time. He currently denies any other pedal complaints at this time Medications & Allergies Home Medications: Home Medication List Calcium Carbonate/Vitamin D3 [Sv Calc 600 mg-D3 12.5MCG Sfgl] 1 each PO DAILY 09/21/21 [History Confirmed 11/18/21] Celecoxib 100 mg [celeBREX 100 MG] 200 mg PO DAILY 09/21/21 [History Confirmed 11/18/21] Finasteride 5 mg [Proscar 5 MG] 5 mg PO DAILY 09/21/21 [History Confirmed 11/18/21] Lidocaine HCl 2% Jelly [Xylocaine 2% JELLY] 5 ml MM DAILY PRN PRN 09/21/21 [History Confirmed 11/18/21] Lisinopril 10 mg [Zestril 10 MG] 10 mg PO DAILY 09/21/21 [History Confirmed 11/18/21] Metformin HCl 500 mg [Glucophage 500 MG] 500 mg PO DAILY 09/21/21 [History Confirmed 11/18/21] Oxcarbazepine 300 mg [Trileptal 300 MG Tablet] 300 mg PO BID 09/21/21 [History Confirmed 11/18/21] Tumeric/Ging/Smoot/Oreg/Capryl [Candicidal Capsule] 1 each PO DAILY 09/21/21 [History Confirmed 11/18/21] Calcium Carbonate 1,200 mg PO DAILY 11/09/21 [History Confirmed 11/18/21] Hydrocodone/Acetaminophen [Hydrocodone-Acetamin 7.5-325] 1 ea PO TID 11/09/21 [History Confirmed 11/18/21] Alfuzosin HCl [Alfuzosin HCl ER] 10 mg PO DAILY 11/18/21 [History Confirmed 11/18/21] Aspirin 325 mg PO DAILY 11/18/21 [History Confirmed 11/18/21] Buspirone HCl 5 mg [Buspar 5 mg] 10 mg PO HS 11/18/21 [History Confirmed 11/18/21] Furosemide 40 mg [Lasix 40 MG] 40 mg PO BID 11/18/21 [History Confirmed 11/18/21] Pregabalin [Lyrica 100Mg] 200 mg PO BID 11/18/21 [History Confirmed 11/18/21] Allergies/Adverse Reactions: Allergies Allergy/AdvReac Type Severity Reaction Status Date / Time No Known Drug Allergies Allergy Verified 11/18/21 10:07 - Past Medical History Past Medical History: Yes Neurological History: Peripheral Neuropathy ENT History: No Pertinent History Cardiac History: Hypertension Respiratory History: No Pertinent History Endocrine Medical History: Diabetes Type II Musculoskelatal History: Arthritis GI Medical History: No Pertinent History History: No Pertinent History Pyscho-Social History: Anxiety Male Reproductive Disorders: Prostate Problems - Past Surgical History Past Surgical History: Yes Neuro Surgical History: No Pertinent History Cardiac History: No Pertinent History Respiratory Surgery: No Pertinent History GI Surgical History: No Pertinent History Genitourinary Surgical Hx: No Pertinent History Musculskeletal Surgical Hx: Joint Replacement Male Surgical History: No Pertinent History Other Surgical History: total ankle right Jul 2018, total knee left December 2020. September right foot removal bone and ext. fixator applied. - Social History Smoking Status: Never smoker Exposure to second hand smoke: No Alcohol: Rarely Drug Use: none Physical Exam - General General Appearance: no apparent distress - Neuro Neurologic: Epicritic and protopathic - Vascular Peripheral Pulses: Posterior tibialis: 2+, Dorsalis-Pedis: 2+ Capillary Refill Time: < 3 seconds Hair Growth: Symmetrical and Bilateral Varicosities: Negtive Edema: Pitting Edema Degree: 1+ Skin: Supple, not atrophic - Narrative Narrative Physical Exam: Podiatry Physical Exam Musculoskeletal exam largely deferred secondary to postoperative status. Patient able to wiggle toes. No pain on compression of calf. Patient has no subjective complaints of chest pain cough calf pain or shortness of breath. Lechuga dressing intact with minimal strikethrough on primary dressing however secondary reinforcements without strikethrough. Large majority of dressing will remain intact while in hospital. Results - Labs Lab/Micro Results: Lab Results-Last 24 Hours 11/18/21 11/18/21 11/18/21 Range/Units 10:30 10:30 13:40 WBC 5.7 (4.0-10.5) x10^3/uL RBC 3.82 L (4.1-5.6) x10^6/uL Hgb 11.1 L (12.5-18.0) g/dL Hct 34.5 L (42-50) % MCV 90.3 (78-100) fL MCH 29.1 (26-32) pg MCHC 32.2 (32-36) g/dL RDW 12.9 (11.5-14.0) % Plt Count 350 (150-450) x10^3/uL MPV 9.5 (7.5-11.0) fL Gran % 59.5 (36.0-66.0) % Immature Gran % (Auto) 0.4 (0.00-0.4) % Nucleat RBC Rel Count 0.0 (0.00-0.1) % Eos # (Auto) 0.07 (0-0.5) x10^3/uL Immature Gran # (Auto) 0.02 (0.00-0.03) x10^3u/L Absolute Lymphs (auto) 1.56 (1.0-4.6) x10^3/uL Absolute Monos (auto) 0.62 (0.0-1.3) x10^3/uL Absolute Nucleated RBC 0.00 (0.00-0.01) x10^3u/L Lymphocytes % 27.5 (24.0-44.0) % Monocytes % 10.9 (0.0-12.0) % Eosinophils % 1.2 (0.00-5.0) % Basophils % 0.5 (0.0-0.4) % Absolute Granulocytes 3.37 (1.4-6.9) x10^3/uL Basophils # 0.03 (0-0.4) x10^3/uL Sodium 135 L (137-145) mmol/L Potassium 4.5 (3.5-5.1) mmol/L Chloride 97 L (98-107) mmol/L Carbon Dioxide 32 H (22-30) mmol/L Anion Gap 9.6 (5-15) MEQ/L BUN 23 H (9-20) mg/dL Creatinine 0.93 (0.66-1.25) mg/dL Estimated GFR > 60.0 ML/MIN Glucose 99 (74-106) mg/dL POC Glucometer (74 to 106) mg/dL Calcium 9.2 (8.4-10.2) mg/dL Total Bilirubin 0.60 (0.2-1.3) mg/dL AST 43 (17-59) U/L ALT 19 (0-50) U/L Alkaline Phosphatase 66 (38-126) U/L Serum Total Protein 7.4 (6.3-8.2) g/dL Albumin 4.0 (3.5-5.0) g/dL Urinalys Dipstick Clnc MAIN LAB Urine Color YELLOW (YELLOW) Urine Appearance CLEAR (CLEAR) Urine pH 8.0 (5-6) Ur Specific Brillion 1.015 (1.005-1.025) POC Urine Protein Conf NEGATIVE (Negative) Urine Ketones NEGATIVE (NEGATIVE) Urine Nitrite NEGATIVE (NEGATIVE) Urine Bilirubin NEGATIVE (NEGATIVE) Urine Urobilinogen 0.2 (0-1) mg/dL Urine Leukocytes NEGATIVE (NEGATIVE) Urine WBC (Auto) NONE (0-5) /HPF Urine RBC (Auto) 0-2 (0-2) /HPF U Epithel Cells (Auto) NONE (FEW) /HPF Urine Bacteria (Auto) RARE (NEGATIVE) /HPF Urine RBC TRACE-INTACT (0-5) David/ul Urine Glucose NEGATIVE (NEGATIVE) mg/dL Influenza Type A Ag (NEGATIVE) Influenza Type B Ag (NEGATIVE) RSV (PCR) (Negative) SARS-CoV-2 (PCR) (NEGATIVE) 11/18/21 11/18/21 11/18/21 Range/Units 20:30 21:23 Unknown WBC (4.0-10.5) x10^3/uL RBC (4.1-5.6) x10^6/uL Hgb 11.2 L (12.5-18.0) g/dL Hct 35.4 L (42-50) % MCV (78-100) fL MCH (26-32) pg MCHC (32-36) g/dL RDW (11.5-14.0) % Plt Count (150-450) x10^3/uL MPV (7.5-11.0) fL Gran % (36.0-66.0) % Immature Gran % (Auto) (0.00-0.4) % Nucleat RBC Rel Count (0.00-0.1) % Eos # (Auto) (0-0.5) x10^3/uL Immature Gran # (Auto) (0.00-0.03) x10^3u/L Absolute Lymphs (auto) (1.0-4.6) x10^3/uL Absolute Monos (auto) (0.0-1.3) x10^3/uL Absolute Nucleated RBC (0.00-0.01) x10^3u/L Lymphocytes % (24.0-44.0) % Monocytes % (0.0-12.0) % Eosinophils % (0.00-5.0) % Basophils % (0.0-0.4) % Absolute Granulocytes (1.4-6.9) x10^3/uL Basophils # (0-0.4) x10^3/uL Sodium (137-145) mmol/L Potassium (3.5-5.1) mmol/L Chloride (98-107) mmol/L Carbon Dioxide (22-30) mmol/L Anion Gap (5-15) MEQ/L BUN (9-20) mg/dL Creatinine (0.66-1.25) mg/dL Estimated GFR ML/MIN Glucose (74-106) mg/dL POC Glucometer 182 H (74 to 106) mg/dL Calcium (8.4-10.2) mg/dL Total Bilirubin (0.2-1.3) mg/dL AST (17-59) U/L ALT (0-50) U/L Alkaline Phosphatase (38-126) U/L Serum Total Protein (6.3-8.2) g/dL Albumin (3.5-5.0) g/dL Urinalys Dipstick Clnc Urine Color (YELLOW) Urine Appearance (CLEAR) Urine pH (5-6) Ur Specific Brillion (1.005-1.025) POC Urine Protein Conf (Negative) Urine Ketones (NEGATIVE) Urine Nitrite (NEGATIVE) Urine Bilirubin (NEGATIVE) Urine Urobilinogen (0-1) mg/dL Urine Leukocytes (NEGATIVE) Urine WBC (Auto) (0-5) /HPF Urine RBC (Auto) (0-2) /HPF U Epithel Cells (Auto) (FEW) /HPF Urine Bacteria (Auto) (NEGATIVE) /HPF Urine RBC (0-5) David/ul Urine Glucose (NEGATIVE) mg/dL Influenza Type A Ag NEGATIVE (NEGATIVE) Influenza Type B Ag NEGATIVE (NEGATIVE) RSV (PCR) NEGATIVE (Negative) SARS-CoV-2 (PCR) NEGATIVE (NEGATIVE) 11/19/21 Range/Units 06:40 WBC 9.0 (4.0-10.5) x10^3/uL RBC 3.45 L (4.1-5.6) x10^6/uL Hgb 10.0 L (12.5-18.0) g/dL Hct 31.3 L (42-50) % MCV 90.7 (78-100) fL MCH 29.0 (26-32) pg MCHC 31.9 L (32-36) g/dL RDW 13.1 (11.5-14.0) % Plt Count 359 (150-450) x10^3/uL MPV 9.7 (7.5-11.0) fL Gran % (36.0-66.0) % Immature Gran % (Auto) (0.00-0.4) % Nucleat RBC Rel Count (0.00-0.1) % Eos # (Auto) (0-0.5) x10^3/uL Immature Gran # (Auto) (0.00-0.03) x10^3u/L Absolute Lymphs (auto) (1.0-4.6) x10^3/uL Absolute Monos (auto) (0.0-1.3) x10^3/uL Absolute Nucleated RBC (0.00-0.01) x10^3u/L Lymphocytes % (24.0-44.0) % Monocytes % (0.0-12.0) % Eosinophils % (0.00-5.0) % Basophils % (0.0-0.4) % Absolute Granulocytes (1.4-6.9) x10^3/uL Basophils # (0-0.4) x10^3/uL Sodium (137-145) mmol/L Potassium (3.5-5.1) mmol/L Chloride (98-107) mmol/L Carbon Dioxide (22-30) mmol/L Anion Gap (5-15) MEQ/L BUN (9-20) mg/dL Creatinine (0.66-1.25) mg/dL Estimated GFR ML/MIN Glucose (74-106) mg/dL POC Glucometer (74 to 106) mg/dL Calcium (8.4-10.2) mg/dL Total Bilirubin (0.2-1.3) mg/dL AST (17-59) U/L ALT (0-50) U/L Alkaline Phosphatase (38-126) U/L Serum Total Protein (6.3-8.2) g/dL Albumin (3.5-5.0) g/dL Urinalys Dipstick Clnc Urine Color (YELLOW) Urine Appearance (CLEAR) Urine pH (5-6) Ur Specific Brillion (1.005-1.025) POC Urine Protein Conf (Negative) Urine Ketones (NEGATIVE) Urine Nitrite (NEGATIVE) Urine Bilirubin (NEGATIVE) Urine Urobilinogen (0-1) mg/dL Urine Leukocytes (NEGATIVE) Urine WBC (Auto) (0-5) /HPF Urine RBC (Auto) (0-2) /HPF U Epithel Cells (Auto) (FEW) /HPF Urine Bacteria (Auto) (NEGATIVE) /HPF Urine RBC (0-5) David/ul Urine Glucose (NEGATIVE) mg/dL Influenza Type A Ag (NEGATIVE) Influenza Type B Ag (NEGATIVE) RSV (PCR) (Negative) SARS-CoV-2 (PCR) (NEGATIVE) - Radiology Impressions Radiology Exams & Impressions: Radiology Procedures Category Date Time Status ANKLE (2V) Routine Exams 11/18/21 13:00 Completed FLUOROSCOPY UP TO 1 HR Routine Exams 11/18/21 13:02 Taken - Other Procedures and Tests Respiratory Therapy 11/18/21 22:46 Oxygen Nasal Cannula 2 lpm Assessment/Plan (1) Loosening of external fixator pin Current Visit: No Status: Acute Assessment & Plan: Patient progressing without complication status post removal of external fixator, removal of antibiotic impregnated spacer and insertion of custom implant with tibial talocalcaneal arthrodesis. Patient is postop day #1 Pain control as prescribed DVT prophylaxis as prescribed Infection prophylaxis Nonweightbearing to the right lower extremity. Incentive spirometry Antiembolism stocking and SCD to contralateral extremity. Medicine for medical management Patient is observation and is slated to go home on Sunday. Outpatient prescriptions will be placed prior to his discharge so that he is able to pick them up on his way home with his transport t service PT consult once assessed for transfers technical services specialist for any at home needs however most needs likely met at this time as this is a staged procedure. We will follow closely until discharge and outpatient. Code(s): T84.89XA - [facility] COMP OF INTERNAL ORTHOPEDIC PROSTH DEV/MARILUZ, INIT (2) Venous insufficiency of both lower extremities Current Visit: No Status: Acute Code(s): I87.2 - VENOUS INSUFFICIENCY (CHRONIC) (PERIPHERAL) (3) Localized edema due to fluid overload Current Visit: No Status: Acute Code(s): E87.70 - FLUID OVERLOAD, UNSPECIFIED (4) Varus deformity, not elsewhere classified, right ankle Current Visit: No Status: Chronic Code(s): M21.171 - VARUS DEFORMITY, NOT ELSEWHERE CLASSIFIED, RIGHT ANKLE (5) Ankle varus, acquired Current Visit: No Status: Acute Code(s): M21.549 - ACQUIRED CLUBFOOT, UNSPECIFIED FOOT (6) Pain in right ankle Current Visit: No Status: Chronic Code(s): M25.571 - PAIN IN RIGHT ANKLE AND JOINTS OF RIGHT FOOT (7) Diabetic peripheral neuropathy associated with type 2 diabetes mellitus Current Visit: No Status: Acute Code(s): E11.42 - TYPE 2 DIABETES MELLITUS WITH DIABETIC POLYNEUROPATHY (8) Controlled diabetes mellitus Current Visit: No Status: Chronic Code(s): E11.9 - TYPE 2 DIABETES MELLITUS WITHOUT COMPLICATIONS (9) Failed arthroplasty Current Visit: No Status: Chronic Code(s): T84.019A - BROKEN INTERNAL JOINT PROSTHESIS, UNSP SITE, INIT ENCNTR (10) HTN (hypertension) Current Visit: No Status: Chronic Code(s): I10 - ESSENTIAL (PRIMARY) HYPERTENSION
[2021-11-19] MEDS: Ecotrin 325 MG PO SCH (08:56)
[2021-11-19] MEDS: Lasix 40 MG PO SCH ×2 (08:56→20:54)
[2021-11-19] MEDS: LYRICA 100MG PO SCH ×2 (08:56→20:53)
[2021-11-19] MEDS: Trileptal 300 MG Tablet PO SCH ×2 (08:57→20:52)
[2021-11-19] MEDS: Vibramycin 100 MG PO SCH ×2 (08:57→20:53)
[2021-11-19] MEDS: Zestril 10 MG PO SCH (08:57)
[2021-11-19] MEDS: Proscar 5 MG PO SCH (08:57)
[2021-11-19] MEDS: ELIQUIS 2.5 MG TABLET PO SCH ×2 (09:03→20:54)
[2021-11-19] MEDS: BUSPAR 5 MG PO SCH (20:53)
[2021-11-20] MEDS: HYDROCODONE-ACETAMIN 10-325 MG PO PRN ×2 (02:33→07:27)
[2021-11-20] MEDS: MOTRIN 600 MG PO PRN ×3 (02:33→18:08)
[2021-11-20] MEDS: Glucophage 500 MG PO SCH (07:27)
[2021-11-20 07:41] LABS: ALBUMIN 3.4 g/dL (3.5-5.0); ALKALINE PHOSPHATASE 54 U/L (38-126); ANION GAP 13.5 MEQ/L (5-15); BLOOD UREA NITROGEN 29 mg/dL (9-20); CHLORIDE 100 mmol/L (98-107); Calcium 8.6 mg/dL (8.4-10.2); Carbon Dioxide 29 mmol/L (22-30); Creatinine 1 1.21 mg/dL (0.66-1.25); EST GLOMERULAR FILTRATION RATE > 60.0 ML/MIN; Glucose 145 mg/dL (74-106); Potassium 3.7 mmol/L (3.5-5.1); SGOT/AST 31 U/L (17-59); SGPT/ALT 16 U/L (0-50); SODIUM 139 mmol/L (137-145); Total Protein 6.5 g/dL (6.3-8.2)
--- NOTE | 2021-11-20 08:23 | PCM.NOTE ---
Date and Time: 11/20/21820 Subjective Assessment: Postop day #2 status post external fixator removal with extraction of antibiotic impregnated bone cement, custom implant and tibial talocalcaneal arthrodesis. Patient with some pain however constitutionally demonstrates minimal if mild discomfort. He currently denies any constitutional symptoms of infection. He denies any other pedal complaints at this time Physical Exam - Narrative Narrative Physical Exam: Podiatry Physical Exam Musculoskeletal exam largely deferred secondary to postoperative status. Patient able to wiggle toes. No pain on compression of calf. Patient has no subjective complaints of chest pain cough calf pain or shortness of breath. Lechuga dressing intact with minimal strikethrough on primary dressing however secondary reinforcements without strikethrough. Large majority of dressing will remain intact while in hospital. OBJECTIVE DATA Vital Signs: Vital Signs - 24 hr Temp Pulse Resp BP Pulse Ox 11/20/21 07:28 98.0 F 70 16 114/56 95 11/20/21 04:00 97.5 F 71 19 120/60 92 L 11/20/21 00:00 97.5 F 68 23 150/68 92 L 11/19/21 16:00 97.9 F 71 16 126/59 93 L 11/19/21 12:00 98.2 F 86 18 135/61 94 L 11/19/21 08:25 93 L Pain Assessment - Last Documented Pain Intensity 6 Pain Scale Used 0-10 Pain Scale Intake and Output: Intake & Output 11/17/21 11/18/21 11/19/21 11/20/21 11:59 11:59 11:59 11:59 Intake Total 1011 1200 Output Total 971 8215 Balance 36 -1325 Weight 127.006 kg 127.006 kg Lab Results: Lab Results-Last 24 Hours 11/19/21 11/19/21 11/20/21 Range/Units 18:19 Unknown 06:52 Sodium 139 (137-145) mmol/L Potassium 3.7 (3.5-5.1) mmol/L Chloride 100 (98-107) mmol/L Carbon Dioxide 29 (22-30) mmol/L Anion Gap 13.5 (5-15) MEQ/L BUN 29 H (9-20) mg/dL Creatinine 1.21 (0.66-1.25) mg/dL Estimated GFR > 60.0 ML/MIN Glucose 145 H (74-106) mg/dL POC Glucometer 145 H (74 to 106) mg/dL Hemoglobin A1c 5.55 (4.5-6.0) % Calcium 8.6 (8.4-10.2) mg/dL Total Bilirubin 0.30 (0.2-1.3) mg/dL AST 31 (17-59) U/L ALT 16 (0-50) U/L Alkaline Phosphatase 54 (38-126) U/L Serum Total Protein 6.5 (6.3-8.2) g/dL Albumin 3.4 L (3.5-5.0) g/dL Radiology Exams: Radiology Procedures Category Date Time Status ANKLE (2V) Routine Exams 11/18/21 13:00 Completed FLUOROSCOPY UP TO 1 HR Routine Exams 11/18/21 13:02 Taken Assessment/Plan (1) Loosening of external fixator pin Current Visit: No Status: Acute Code(s): T84.89XA - [facility] COMP OF INTERNAL ORTHOPEDIC PROSTH DEV/MARILUZ, INMAAME (2) Venous insufficiency of both lower extremities Current Visit: No Status: Acute Code(s): I87.2 - VENOUS INSUFFICIENCY (CHRONIC) (PERIPHERAL) (3) Localized edema due to fluid overload Current Visit: No Status: Acute Code(s): E87.70 - FLUID OVERLOAD, UNSPECIFIED (4) Varus deformity, not elsewhere classified, right ankle Current Visit: No Status: Chronic Code(s): M21.171 - VARUS DEFORMITY, NOT ELSEWHERE CLASSIFIED, RIGHT ANKLE (5) Ankle varus, acquired Current Visit: No Status: Acute Code(s): M21.549 - ACQUIRED CLUBFOOT, UNSPECIFIED FOOT (6) Pain in right ankle Current Visit: No Status: Chronic Code(s): M25.571 - PAIN IN RIGHT ANKLE AND JOINTS OF RIGHT FOOT (7) Diabetic peripheral neuropathy associated with type 2 diabetes mellitus Current Visit: No Status: Acute Assessment & Plan: Patient progressing without complication status post removal of external fixator, removal of antibiotic impregnated spacer and insertion of custom implant with tibial talocalcaneal arthrodesis. Patient is postop day #2 Pain control Percocet 10/325 mg q4-6h for break through pain DVT prophylaxis as prescribed Infection prophylaxis- change to clindamycin 150mg PO BID q 10 days. continue on dc Nonweightbearing to the right lower extremity. Incentive spirometry Antiembolism stocking and SCD to contralateral extremity. Medicine for medical management Patient is observation and is slated to go home on Sunday. Outpatient prescriptions will be placed prior to his discharge so that he is able to pick them up on his way home with his transport t service PT consult once assessed for transfers printing services coordinator for any at home needs however most needs likely met at this time as this is second and final phase in a staged procedure. Fit for discharge tomorrow if criteria met. We will follow closely until discharge and outpatient. Code(s): E11.42 - TYPE 2 DIABETES MELLITUS WITH DIABETIC POLYNEUROPATHY (8) Controlled diabetes mellitus Current Visit: No Status: Chronic Code(s): E11.9 - TYPE 2 DIABETES MELLITUS WITHOUT COMPLICATIONS (9) Failed arthroplasty Current Visit: No Status: Chronic Code(s): T84.019A - BROKEN INTERNAL JOINT PROSTHESIS, UNSP SITE, INIT ENCNTR (10) HTN (hypertension) Current Visit: No Status: Chronic Code(s): I10 - ESSENTIAL (PRIMARY) HYPER TENSION
[2021-11-20] MEDS: Zestril 10 MG PO SCH (10:44)
[2021-11-20] MEDS: Lasix 40 MG PO SCH ×2 (10:44→21:44)
[2021-11-20] MEDS: Ecotrin 325 MG PO SCH (10:44)
[2021-11-20] MEDS: LYRICA 100MG PO SCH ×2 (10:45→21:44)
[2021-11-20] MEDS: Proscar 5 MG PO SCH (10:45)
[2021-11-20] MEDS: Trileptal 300 MG Tablet PO SCH ×2 (10:46→21:45)
[2021-11-20] MEDS: CLEOCIN 150 MG CAPSULE PO SCH ×3 (10:48→21:44)
[2021-11-20] MEDS: OXYCODONE-ACETAMINOPHEN 10-325 PO PRN ×3 (12:04→20:21)
[2021-11-20] MEDS: BUSPAR 5 MG PO SCH (21:44)
[2021-11-21] MEDS: MOTRIN 600 MG PO PRN (00:55)
[2021-11-21] MEDS: OXYCODONE-ACETAMINOPHEN 10-325 PO PRN ×4 (00:55→13:55)
[2021-11-21] MEDS ORDERED: CORTISONE 1% CREAM TP PRN (07:00)
[2021-11-21] MEDS: LYRICA 100MG PO SCH (08:55)
[2021-11-21] MEDS: Glucophage 500 MG PO SCH (08:55)
[2021-11-21] MEDS: Lasix 40 MG PO SCH (08:55)
[2021-11-21] MEDS: Ecotrin 325 MG PO SCH (08:56)
[2021-11-21] MEDS: CLEOCIN 150 MG CAPSULE PO SCH ×2 (08:56→13:57)
[2021-11-21] MEDS: Proscar 5 MG PO SCH (08:56)
[2021-11-21] MEDS: Trileptal 300 MG Tablet PO SCH (08:57)
[2021-11-21] MEDS: Zestril 10 MG PO SCH (08:57)
--- NOTE | 2021-11-21 09:11 | XRAY ---
5 minutes and 55 seconds of fluoroscopy was used in surgery for removal of external fixator and talotibial calcaneal arthrodesis with custom implant of right ankle.
--- NOTE | 2021-11-21 09:40 | OP ---
SURGERY DATE/TIME: 11/18/2021 1312 PREOPERATIVE DIAGNOSES: 1) Varus contracture right ankle. 2) Failed ankle total ankle arthroplasty. 3) Ankle contracture. 4) Retained external fixator. 5) Pain right ankle. 6) Avascular necrosis of talus. 7) Osteoarthropathy right ankle. 8) Diabetes mellitus with peripheral neuropathy. POSTOPERATIVE DIAGNOSES: 1) Varus contracture right ankle. 2) Failed ankle total ankle arthroplasty. 3) Ankle contracture. 4) Retained external fixator. 5) Pain right ankle. 6) Avascular necrosis of talus. 7) Osteoarthropathy right ankle. 8) Diabetes mellitus with peripheral neuropathy. PROCEDURES: 1) [place] of bone marrow aspirate. 2) Removal of multiplanar external fixator. 3) Removal of antibiotic impregnated spacer. 4) Tibiotalar calcaneal arthrodesis. SURGEON: [place] DPM. LINUX UNIX ADMINISTRATOR: None. ANESTHESIA: General. HEMOSTASIS: Thigh tourniquet set to 300 mm of [place] for 177 minutes with a pause for 15 minutes at the 2 hour vijay total tourniquet time. ESTIMATED BLOOD LOSS: 150 cc. MATERIALS: [place] ankle nail size 12 x 270 mm with polar locking screws 5.0 x 30, 5.0 x 38 and 5.0 x 60, a custom Restore 3D cage. 20 cc of Bonus Triad. 2-0 Vicryl, 2-0 Nylon, 3-0 Nylon. Two suture guards. INJECTABLES: Postoperative popliteal block postoperatively. See anesthesia report for details. INDICATION FOR SURGERY: Tin is a very pleasant 56-year-old male who is currently going through a staged attempt at limb salvage for Charcot arthropathy of the right ankle. Due to the fact that he had a total ankle arthroplasty with peripheral neuropathy and subsequently Charcoted out around it, the patient was staged for this procedure due to the fact that the patient did not disclose diabetes diagnosis and suspect for talar AVN (avascular necrosis) versus infection were the assumed differential diagnosis based on this information. The patient in initial stage had external fixator placed, removal of the total ankle arthroplasty and bone debridement with bone biopsy obtained as well as an antibiotic impregnated spacer. The patient is approximately six weeks out from initial procedure. He understands all risks, complications and benefits of surgical intervention at this time. He has asked plenty of questions which were answered to the patient's satisfaction. He understands that there are no guarantees provided as to the outcome of surgical intervention. It is with that we decided to proceed. DESCRIPTION OF PROCEDURE AND FINDINGS: The patient is brought into the OR and placed on the OR table in the supine position. General anesthesia was administered to the patient until the patient was sedated. A well-padded thigh tourniquet was then applied and the right lower extremity was prepped partially. At this time longterm through the prep, wire cutters were used to remove the external fixator from the patient's leg, pins were pulled and the remainder of the prep performed. Following this, the leg was lowered onto the surgical field. At this time under fluoroscopic guidance, bone marrow aspirate was harvested from the right heel calcaneus in order to spun down and mixed with Allograft this was handed off the field. Attention was then directed under fluoroscopic guidance utilizing a [place] to identify the lateral aspect of the ankle joint and the remnant of the fibula as well as the mid-section of the antibiotic spacer. An incision was made down to bone at the fibula and down to the joint at the ankle exposing the fibula as well as the ankle implant. At this point, a further resection of the fibula was taken for milling down to for autograft to mix with Allograft at a later stage during the procedure. At this time the antibiotic spacer was rotated 90 degrees and removed. Following this, bone debridement was performed in order to prepare for the tibiotalar arthrodesis and implantation of the custom made cage. At this time tibial cut was made with a custom cut guide. Following this, this was checked under fluoroscopy and deemed to be adequate and orthogonal relative to the longitudinal axis of the tibia. The talar cut guide was then applied to the lateral aspect of the talus which was planed down. Upon inspection with trial guide, it did appear that there was still some varus angulation and resection of more medial talus was performed under free hand, this was checked under fluoroscopic guidance. Decision was made to use the larger of the two implants provided to us. At this time, the bone marrow aspirate soaked Allograft Michaela Triad as well as the autograft harvested from the fibula was packed into the custom made implant and the implant was inserted. Reaming was performed up until size 13 reamer in preparation for size 12 nail. At this time, the nail was inserted per global marketing specialist specification. A single 5.0 x 30 mm screw was introduced into the tibia proximally and for the transverse plane calcaneal screw 50 x 38 was introduced from lateral to medial. Following this a posterior to anterior screw was introduced measuring 60 mm being careful not to introduce this screw into the calcaneal cuboid joint. Following this, this was checked under fluoroscopic guidance and deemed to be adequate. The remaining space at the lateral aspect of the incision was packed with bone graft. Following this, the incision was flushed with copious amounts of sterile saline superficially so as not to soak away the bone marrow harvest. 2-0 Vicryl was then utilized to coapt the surgical skin edges subcutaneously in a simple buried-type fashion. Following this, 3-0 Nylon utilized to coapt the skin edges in a horizontal mattress-type fashion. The incision did appear to have some tension applied it so two suture guards were utilized to help bring tension off of the lateral aspect of the ankle. At this time, attention was directed to the plantar aspect of the foot where trauma sutures and simple interrupted were utilized to coapt the plantar incision and the posterior aspect of the calcaneus where the screws were presented were coapted utilizing simple interrupted sutures with Nylon. The patient then was placed in a dressing consisting of Betadine, Adaptic, 4x4, Kerlix, Coban and a well-padded posterior splint with Sugar-Tong. Following this, the patient was provided a popliteal block for postoperative pain management. The patient was then reversed from anesthesia and returned to the postoperative anesthesia care unit with vital signs stable and vascular status intact. The patient handled the procedure without significant complication. Postoperative orders as indicated in the patient's observation chart.
--- NOTE | 2021-11-21 10:30 | PCM.NOTE ---
Date and Time: 11/21/21 1028 Subjective Assessment: Is a very pleasant 56-year-old male who is seen postop day #3 status post tibiotalar calcaneal arthrodesis removal of external fixator extraction of antibiotic impregnated cement spacer and bone marrow harvest. Patient progressing without significant complication. Patient has been weaned off of IV pain medication and is tolerating pain control p.o. Transition from IV ABX to oral in preparation for discharge. Patient denies any calf pain. He denies any shortness of breath chest pain or new onset of cough. Patient is in good spirits. He currently denies any constitutional symptoms of infection. He denies any other pedal complaints at this time Physical Exam - Narrative Narrative Physical Exam: Podiatry Physical Exam Musculoskeletal exam largely deferred secondary to postoperative status. Patient able to wiggle toes. No pain on compression of calf. Patient has no subjective complaints of chest pain cough calf pain or shortness of breath. [place] dressing intact with minimal strikethrough on primary dressing however se condary reinforcements without strikethrough. Large majority of dressing will remain intact while in hospital. OBJECTIVE DATA Vital Signs: Vital Signs - 24 hr Temp Pulse Resp BP Pulse Ox 11/21/21 07:14 97.9 F 61 16 105/67 96 11/21/21 04:00 97.7 F 62 19 114/57 94 L 11/21/21 00:00 95.9 F 67 19 90/48 95 11/20/21 20:00 96.3 F 79 19 108/59 95 11/20/21 18:51 92 L 11/20/21 16:00 97.9 F 68 16 112/71 95 11/20/21 15:28 96 11/20/21 13:35 97.9 F 66 18 125/64 96 Pain Assessment - Last Documented Pain Intensity 3 Pain Scale Used 0-10 Pain Scale Intake and Output: Intake & Output 11/18/21 11/19/21 11/20/21 11/21/21 11:59 11:59 11:59 11:59 Intake Total 1011 1200 Output Total 976 2596 Balance 36 -1325 Weight 127.006 kg 127.006 kg Multi-Disciplinary Progress Notes: Multi-Disciplinary Progress Notes 11/21/21 10:06 Case Management Note by Adelina Pavon S/[facility]- THEY HAVE 2 PRESCRIPTIONS READY FOR PATIENT CLINDAMYCIN AND PERCOCET Initialized on 11/21/21 10:06 - END OF NOTE Assessment/Plan (1) Loosening of external fixator pin Current Visit: No Status: Acute Code(s): T84.89XA - [facility] COMP OF INTERNAL ORTHOPEDIC PROSTH DEV/GRFT, INIT (2) Venous insufficiency of both lower extremities Current Visit: No Status: Acute Code(s): I87.2 - VENOUS INSUFFICIENCY (CHRONIC) (PERIPHERAL) (3) Localized edema due to fluid overload Current Visit: No Status: Acute Code(s): E87.70 - FLUID OVERLOAD, UNSPECIFIED (4) Varus deformity, not elsewhere classified, right ankle Current Visit: No Status: Chronic Code(s): M21.171 - VARUS DEFORMITY, NOT ELSEWHERE CLASSIFIED, RIGHT ANKLE (5) Ankle varus, acquired Current Visit: No Status: Acute Code(s): M21.549 - ACQUIRED CLUBFOOT, UNSPECIFIED FOOT (6) Pain in right ankle Current Visit: No Status: Chronic Code(s): M25.571 - PAIN IN RIGHT ANKLE AND JOINTS OF RIGHT FOOT (7) Diabetic peripheral neuropathy associated with type 2 diabetes mellitus Current Visit: No Status: Acute Code(s): E11.42 - TYPE 2 DIABETES MELLITUS WITH DIABETIC POLYNEUROPATHY (8) Controlled diabetes mellitus Current Visit: No Status: Chronic Code(s): E11.9 - TYPE 2 DIABETES MELLITUS WITHOUT COMPLICATIONS (9) Failed arthroplasty Current Visit: No Status: Chronic Assessment & Plan: Patient progressing without complication status post removal of external fixator, removal of antibiotic impregnated spacer and insertion of custom implant with tibial talocalcaneal arthrodesis. Patient is postop day #3 Pain control Percocet 10/325 mg q4-6h for break through pain DVT prophylaxis as prescribed Infection prophylaxis- change to clindamycin 150mg PO BID q 10 days. continue on dc Nonweightbearing to the right lower extremity. DC to home when criteria met. Code(s): E11.42 - TYPE 2 DIABETES MELLITUS WITH DIABETIC POLYNEUROPATHY Code(s): T84.019A - BROKEN INTERNAL JOINT PROSTHESIS, UNSP SITE, INIT ENCNTR (10) HTN (hypertension) Current Visit: No Status: Chronic Code(s): I10 - ESSENTIAL (PRIMARY) HYPERTENSION
[2021-11-21 15:45] VITALS: BP 129/59; PULSE 76; O2SAT 96
== END 2021-11-21 16:05 | disposition home health service (06) ==
LOC: UNDOADMOB 09:24 → MED SURG 09:24 → ICU 09:24 → EDSTATUS 12:56
PROVIDERS: ADMIT Family Medicine; ATTEND Podiatrist Foot & Ankle Surgery
DX: M21.171 Varus deformity, not elsewhere classified, right ankle (principal); M79.671 Pain in right foot; M25.571 Pain in right ankle and joints of right foot; M24.571 Contracture, right ankle; M14.671 Charcot's joint, right ankle and foot; M19.071 Primary osteoarthritis, right ankle and foot; M87.9 Osteonecrosis, unspecified; M89.471 Other hypertrophic osteoarthropathy, right ankle and foot; E11.42 Type 2 diabetes mellitus with diabetic polyneuropathy; T84.89XA Other specified complication of internal orthopedic prosthetic devices, implants and grafts, initial encounter; I87.2 Venous insufficiency (chronic) (peripheral); E87.70 Fluid overload, unspecified; M21.531 Acquired clawfoot, right foot; I10 Essential (primary) hypertension; Z20.828 Contact with and (suspected) exposure to other viral communicable diseases; Z79.899 Other long term (current) drug therapy
CPT/HCPCS: 0241U; 20694; 27870; 28725; 36415; 38220; 73600; 76000; 80053; 81001; 82947; 83036; 85014; 85018; 85025; 85027; 87086; 94760; 97161; C1713; G0378; 64447; 64450; 76942; J0360; J0690; J1100; J1170; J1885; J2175; J2250; J2405; J2704; J3010; A9270-GY

== ENCOUNTER 2023-11-20 06:05 | Day surgery (SDC) | payer OTHER ==
[2023-11-20] MEDS: KEFZOL 1 GM** 3 G in Sodium Chloride 0.9% 50 ML 50 ML IV ONE (06:22)
[2023-11-20] MEDS: Lactated Ringers 1,000 ML IV SCH (06:23)
[2023-11-20 07:04] LABS: Absolute Neutrophil Ct (ANC) 2.33 x10^3/uL (1.78-5.38); BASOPHIL % 0.5 % (0.2-1.2); Basophil (Absolute #) 0.03 x10^3/uL (0.01-0.08); Eosinophil % 3.5 % (0.8-7.0); Hematocrit 38.4 % (40.1-51.0); Hemoglobin 11.9 g/dL (13.7-17.5); IMMATURE GRAN # 0.02 x10^3u/L (0.001-0.031); IMMATURE GRAN % 0.3 % (0.001-0.429); Lymphocyte (Absolute #) 2.49 x10^3/uL (1.32-3.57); Lymphocytes % 43.4 % (21.8-53.1); Mean Cell Volume 89.1 fL (79.0-92.2); Mean Corpuscular Hemoglobin 27.6 pg (25.7-32.2); Mean Platelet Volume 9.5 fL (9.4-12.4); Monocyte (Absolute #) 0.67 x10^3/uL (0.30-0.82); Monocytes % 11.7 % (5.3-12.2); Neutrophil % 40.6 % (34.0-67.9); Platelet Count 278 x10^3/uL (163-337); Red Blood Count 4.31 x10^6/uL (4.63-6.08); Red Cell Distribution Width 14.5 % (11.6-14.4); White Blood Count 5.7 x10^3/uL (4.23-9.07)
[2023-11-20 07:12] VITALS: RESP 18
[2023-11-20] MEDS ORDERED: Marcaine Mpf 0.5% Vial 30 Ml ONE (07:12)
[2023-11-20] MEDS ORDERED: Xylocaine 1% Vial 30 ML PF IJ ONE (07:12)
[2023-11-20 08:13] LABS: ALBUMIN 3.8 g/dL (3.5-5.0); ANION GAP 9.2 MEQ/L (5-15); BILIRUBIN,TOTAL 0.3 mg/dL (0.2-1.3); Calcium 9.3 mg/dL (8.4-10.2); Creatinine 1 0.94 mg/dL (0.66-1.25); EST GLOMERULAR FILTRATION RATE 92.8 ML/MIN; Potassium 4.5 mmol/L (3.5-5.1); Total Protein 7.1 g/dL (6.3-8.2)
[2023-11-20] MEDS ORDERED: DIPRIVAN 200 MG/20 ML IV ONE ×3 (08:16→08:47)
[2023-11-20] MEDS ORDERED: SUBLIMAZE 100 MCG/2 ML ONE ×3 (08:17→09:39)
[2023-11-20] MEDS ORDERED: Versed 2 MG/2 ML Injection ONE ×2 (08:17)
[2023-11-20] MEDS ORDERED: Zofran 4 MG/2 ML VIAL ONE (09:13)
--- NOTE | 2023-11-20 09:31 | XRAY ---
Indication: Bone biopsy right ankle. Intraoperative fluoroscopy provided for 48 seconds. Numerous digital spot and cine images submitted for interpretation demonstrates tip of bone biopsy needle projecting over anterior superior calcaneus. Correlate with intraoperative findings/report.
[2023-11-20 10:37] VITALS: BP 124/71; PULSE 63; TEMP 96.6; O2SAT 95
--- NOTE | 2023-11-20 14:14 | XRAY ---
One minute and 48 seconds of fluoroscopy was used in surgery for a bone biopsy right ankle.
--- NOTE | 2023-11-21 09:58 | OP ---
SURGERY DATE/TIME: 11/20/2023 0821 PREOPERATIVE DIAGNOSES: 1) Right foot pain. 2) Right ankle pain. 3) History of arthrodesis of right ankle with [id number] custom-made implant. POSTOPERATIVE DIAGNOSES: 1) Right foot pain. 2) Right ankle pain. 3) History of arthrodesis of right ankle with [id number] custom-made implant. PROCEDURES: Bone biopsy of tibia and calcaneus right ankle and foot. SURGEON: [place] DPM. ASBESTOS HANDLER: None. ANESTHESIA: Monitored anesthesia care with a block consisting of 17 cc mixture of 1% lidocaine plain, 0.5% bupivacaine plain injected in V block-type fashion around bone biopsy site. INDICATION FOR SURGERY: Tin is a very pleasant 58-year-old male well known to my service for a failed total ankle replacement done by another provider with suspicion of possible infection. At that time, the patient was placed in an external fixator. A cement spacer was placed. Bone biopsies were obtained demonstrating negative osteomyelitis and then subsequently went forward with the custom-made implant with intramedullary nail. The patient has had some subsequent pain in regards to the right lower extremity which was thought to be associated with swelling. A bone scan was obtained demonstrating some uptake of possible infectious versus nonunion to the right ankle arthrodesis site. The patient was made aware of this and what options were available. At this time to rule out the possibility of infection, which I do believe is low however would be catastrophic, we have decided to proceed with a bone biopsy at this time in order to rule that out and possibly proceed with conservative management. As a result, the patient has been made aware of all risks, complications and benefits of surgical intervention at this time including but not limited to infection, hematoma, seroma, possibility of delayed wound healing, nonwound healing and possible need for further surgical intervention at a later date. No guarantees were provided as to the outcome of surgical intervention. At this time, we have decided to proceed. DESCRIPTION OF PROCEDURE AND FINDINGS: The patient is brought into the OR and placed on the OR table in the supine position. At this time, monitored anesthesia care was administered until the patient was adequately sedated. At this time, the right lower extremity was prepped and draped in the typical sterile fashion and lowered onto the surgical field. At this time under fluoroscopic guidance, stress views were taken demonstrating absolutely no motion on mortise and lateral views of the ankle when stress was applied in the appropriate [place] perpendicular to the sagittal and coronal plane. This to some extent rules out the possibility of nonunion. At this time, the decision was made to proceed with a bone biopsy and with a trocar Jamshidi needle this was performed utilizing a stab incision to the anterior aspect of the right ankle which was performed utilizing a 15 blade this was dissected down to the level of bone utilizing curved mini-hemostat and then the trocar bone biopsy was performed utilizing a mallet and Jamshidi needle, this was handed off the field for pathologic assessment. Another sample was taken from the lateral aspect of the calcaneus near the fusion site, this was performed in a similar fashion. Following this, copious amounts of sterile saline were utilized to flush the surgical site. 3-0 Nylon was utilized in a simple interrupted-type fashion to coapt the skin edges. A dressing consisting of Betadine, Adaptic, 4x4, Kerlix and SABRINA was applied to the right lower extremity. The patient was then reversed from anesthesia and returned to the postoperative anesthesia care unit with vital signs stable and vascular status intact. The patient handled the anesthesia as well as the procedure without significant complication. Postoperative orders as indicated in the patient's discharge chart.
== END 2023-11-20 11:45 | disposition home or self-care (01) ==
LOC: SDC 06:05
PROVIDERS: ATTEND Podiatrist Foot & Ankle Surgery
DX: M79.671 Pain in right foot (principal); M25.571 Pain in right ankle and joints of right foot; Z98.1 Arthrodesis status; Z96.698 Presence of other orthopedic joint implants; I10 Essential (primary) hypertension
CPT/HCPCS: 20220; 20225; 36415; 73610; 76000; 80053; 85025; 93005; J0690; J2250; J2405; J2704; J3010